=== PATIENT | female | born 1940 | race Caucasian/White ===

== ENCOUNTER 2016-12-14 19:10 | Emergency (ER) | payer MEDICARE, BC ==
[2016-12-14 20:07] VITALS: PULSE 86; RESP 18
[2016-12-14] MEDS ORDERED: KETOROLAC 60 MG/2 ML VIAL IM STA (22:20)
--- NOTE | 2016-12-14 22:24 | ED ---
Back Pain HPI - General Chief Complaint: Back Pain/Injury Stated Complaint: Back/Leg Pain Time Seen by Provider: 12/14/16 22:00 Source: patient, RN notes reviewed Limitations: no limitations - History of Present Illness Initial Comments: Patient is 76-year-old female since emergency room for evaluation of right- sided low back pain. Patient states she fell back in August. Patient states she came here and received a hip and lower back x-ray. Patient states x-rays did not show any findings and she was sent home and advised to follow-up with Dr[facility]. Patient states she went and saw Dr. Srinivasan and he reviewed the x-rays and did not find any fractures. Patient states she was prescribed ibuprofen. Patient states she has been taking ibuprofen. Patient states when she woke up she began having worsening right- sided low back pain that radiates into her right upper leg. Patient states that her right foot is feeling numb. Patient states pain is worse if she sits up, lays down or stands up. Patient denies recent falls since August. Patient denies recent heavy lifting. Patient denies any recent changes in physical activity. Patient states she's having constant pain that would not subside. Patient denies urinary or fecal incontinence. Patient denies saddle anesthesia. - Related Data Home Medications Medication Instructions Recorded Confirmed amLODIPine BESYLATE/BENAZEPRIL 1 cap PO DAILY 12/14/16 12/14/16 [Lotrel 5-20 mg Capsule] Previous Rx's Medication Instructions Recorded methylPREDNISolone Dose Pack 4 mg PO DIRECTED #21 package 12/14/16 [Medrol Dose Pack] Allergies Allergy/AdvReac Type Severity Reaction Status Date / Time No Known Allergies Allergy Verified 12/14/16 21:28 Review of Systems ROS Statement: Those systems with pertinent positive or pertinent negative responses have been documented in the HPI. ROS Other: All systems not noted in ROS Statement are negative. Past Medical History Past Medical History: Hypertension History of Any Multi-Drug Resistant Organisms: None Reported Past Surgical History: Hysterectomy Past Psychological History: No Psychological Hx Reported Smoking Status: Never smoker Past Alcohol Use History: None Reported Past Drug Use History: None Reported General Exam - General Exam Comments Initial Comments: Sitting in exam room, no acute distress. Limitations: no limitations General appearance: alert, in no apparent distress Head exam: Present: atraumatic, normocephalic, normal inspection Eye exam: Present: normal appearance ENT exam: Present: normal exam Neck exam: Present: normal inspection Respiratory exam: Present: normal lung sounds bilaterally. Absent: respiratory distress Cardiovascular Exam: Present: regular rate, normal rhythm, normal heart sounds Back exam: Present: normal inspection, paraspinal tenderness (right lumbosacral spine) Expanded Back exam: Sciatic Notch Tenderness: Right, Positive Straight Leg Raise: Right Neurological exam: Present: alert, oriented X3 Psychiatric exam: Present: normal affect, normal mood Skin exam: Present: warm, dry, intact, normal color. Absent: rash Course Vital Signs 12/14/16 12/14/16 20:02 22:28 Temperature 98.4 F 97.9 F Pulse Rate 86 86 Respiratory 18 18 Rate Blood Pressure 157/85 156/87 O2 Sat by Pulse 97 96 Oximetry Medical Decision Making - Medical Decision Making Patient is a 76-year-old female presents emergency room for evaluation of right- sided low back pain and lumbar radiculopathy in the right side. Patient was offered another x-ray and patient declined. Will send patient home on a Medrol Dosepak and advised her to follow-up with her primary care provider for possible MRI for further evaluation of symptoms. Patient states she understands everything that was discussed with her. Return parameters discussed. Case discussed with Dr. Cervantes. Disposition Clinical Impression: Low back pain, Lumbar radiculopathy, right Disposition: HOME SELF-CARE Condition: Good Instructions: Acute Low Back Pain (ED), Lumbar Radiculopathy (ED) Additional Instructions: Take medications as directed. Alternate ice and heat. Please follow up with primary care provider in 1-2 days for further evaluation. If any new symptom arises or symptoms worsen, return to ER as soon as possible. Prescriptions: methylPREDNISolone Dose Pack [Medrol Dose Pack] 4 mg PO DIRECTED #21 package Referrals: Bhanu Vicente MD [Primary Care Provider] - 1-2 days Time of Disposition: 22:38
[2016-12-14 22:29] VITALS: BP 156/87; TEMP 97.9
== END 2016-12-14 22:53 | disposition home or self-care (01) ==
LOC: EC 19:10
DX: M54.16 Radiculopathy, lumbar region (principal); I10 Essential (primary) hypertension; Z79.899 Other long term (current) drug therapy
CPT/HCPCS: 99283; 96372; J1885

== ENCOUNTER → 2016-12-16 | Outpatient (CLI) | payer MEDICARE, BC ==
--- NOTE | 2016-12-16 13:15 | XR ---
EXAMINATION TYPE: XR lumbosacral spine min 4V DATE OF EXAM: 12/16/2016 12:47 PM COMPARISON: 09/11/2016 HISTORY: 76-year-old female low back pain TECHNIQUE: 5 views FINDINGS: 5 lumbar type vertebral bodies. No pars interarticularis defect. Hypertrophic facet arthropathy mid t o lower lumbar spine. There is mild degenerative disc interspace narrowing throughout the lumbar spin e. Vertebral body heights are preserved and alignment is maintained. There has been no significant ch yenni from 09/11/2016. IMPRESSION: 1. Multilevel mild degenerative disc disease. Additional hypertrophic facet arthropathy mid to lower lumbar spine. 2. No vertebral compression collapse or malalignment. 3. No significant change from 09/11/2016.
== END ==
LOC: RADXRMAIN 12:28
PROVIDERS: ATTEND Internal Medicine
DX: M51.36 Other intervertebral disc degeneration, lumbar region (principal); M46.86 Other specified inflammatory spondylopathies, lumbar region
CPT/HCPCS: 72110

== ENCOUNTER 2016-12-23 09:41 | Observation (INO) | payer MEDICARE, BC ==
[2016-12-23] MEDS ORDERED: ONDANSETRON 4 MG/2 ML VIAL IVP STA (10:13)
[2016-12-23] MEDS ORDERED: HYDROmorphone 1 MG/ML 1 ML SYRINGE IVP STA (10:13)
[2016-12-23] MEDS ORDERED: SODIUM CHLORIDE 0.9% 1,000 ML IV STA (10:13)
[2016-12-23] MEDS ORDERED: PANTOPRAZOLE 40 MG/10 ML VIAL IVP STA (10:13)
--- NOTE | 2016-12-23 10:21 | ED ---
Abdominal Pain HPI - General Chief Complaint: Abdominal Pain Stated Complaint: rectal bleeding Time Seen by Provider: 12/23/16 10:02 Source: patient, RN notes reviewed Mode of arrival: ambulatory Limitations: no limitations - History of Present Illness Initial Comments: Patient 76-year-old female seen in the past medical history for diverticulitis, who presents emergency room today with chief complaint of increased lower abdominal pain over the last few days. Does admit to a bright red blood in toilet. Patient does admit that she's had these symptoms in the past with diverticulitis. Does admit to pain in lower abdomen. States comes and goes with cramping type ways. She admits to feeling nauseated. Denies any other complaints. Patient denies any recent fever, chills, shortness of breath, chest pain, back pain, numbness or tingling, dysuria or hematuria, constipation, headaches or visual changes, or any other complaints. - Related Data Home Medications Medication Instructions Recorded Confirmed amLODIPine BESYLATE/BENAZEPRIL 1 cap PO DAILY 12/14/16 12/23/16 [Lotrel 5-20 mg Capsule] Allergies Allergy/AdvReac Type Severity Reaction Status Date / Time codeine AdvReac Nausea & Verified 12/23/16 12:44 Vomiting morphine AdvReac Nausea & Verified 12/23/16 12:44 Vomiting Review of Systems ROS Statement: Those systems with pertinent positive or pertinent negative responses have been documented in the HPI. ROS Other: All systems not noted in ROS Statement are negative. Past Medical History Past Medical History: Hypertension History of Any Multi-Drug Resistant Organisms: None Reported Past Surgical History: Hysterectomy Past Psychological History: No Psychological Hx Reported Smoking Status: Never smoker Past Alcohol Use History: None Reported Past Drug Use History: None Reported General Exam - General Exam Comments Initial Comments: General: The patient is awake and alert, in no distress, and does not appear acutely ill. Eye: Pupils are equal, round and reactive to light, extra-ocular movements are intact. No nystagmus. There is normal conjunctiva bilaterally. No signs of icterus. Ears, nose, mouth and throat: There are moist mucous membranes and no oral lesions. Neck: The neck is supple, there is no tenderness or JVD. Cardiovascular: There is a regular rate and rhythm. No murmur, rub or gallop is appreciated. Respiratory: Lungs are clear to auscultation, respirations are non-labored, breath sounds are equal. No wheezes, stridor, rales, or rhonchi. Gastrointestinal: Soft, non-distended, non-tender abdomen without masses or organomegaly noted. There is no rebound or guarding present. No CVA tenderness. Bowel sounds are unremarkable. Musculoskeletal: Normal ROM, no tenderness. Strength 5/5. Sensation intact. Pulses equal bilaterally 2+. Neurological: A&O x 3. CN II-XII intact, There are no obvious motor or sensory deficits. Coordination appears grossly intact. Speech is normal. Skin: Skin is warm and dry and no rashes or lesions are noted. Psychiatric: Cooperative, appropriate mood & affect, normal judgment. : [employer] TO[employer] TECHNICIANCHANTELLE Junior present for exam. Normal rectal tone. Guaiac positive. Limitations: no limitations Course Vital Signs 12/23/16 12/23/16 12/23/16 09:55 10:58 12:07 Temperature 97.3 F L 98.0 F Pulse Rate 99 92 91 Respiratory 20 14 14 Rate Blood Pressure 149/93 158/88 133/75 O2 Sat by Pulse 98 95 97 Oximetry Medical Decision Making - Medical Decision Making Patient's CT reviewed shows no evidence of a diverticulitis. Patient did have bright red blood per rectum.. Does admit to bloody bowel movements over the last day. Patient will be admitted to the hospital further evaluation consult Dr. Jones. - Lab Data Result diagrams: 12/23/16 10:43 12/23/16 10:43 Lab Results 12/23/16 12/23/16 12/23/16 Range/Units 10:43 10:43 10:43 WBC 10.6 (3.8-10.6) k/uL RBC 5.09 (3.80-5.40) m/uL Hgb 15.0 (11.4-16.0) gm/dL Hct 44.1 (34.0-46.0) % MCV 86.6 (80.0-100.0) fL MCH 29.4 (25.0-35.0) pg MCHC 34.0 (31.0-37.0) g/dL RDW 13.0 (11.5-15.5) % Plt Count 348 (150-450) k/uL Neutrophils % 78 % Lymphocytes % 18 % Monocytes % 3 % Eosinophils % 0 % Basophils % 0 % Neutrophils # 8.3 H (1.3-7.7) k/uL Lymphocytes # 1.9 (1.0-4.8) k/uL Monocytes # 0.4 (0-1.0) k/uL Eosinophils # 0.0 (0-0.7) k/uL Basophils # 0.0 (0-0.2) k/uL PT (9.0-12.0) sec INR (<1.1) APTT (22.0-30.0) sec Sodium 134 L (137-145) mmol/L Potassium 4.5 (3.5-5.1) mmol/L Chloride 98 (98-107) mmol/L Carbon Dioxide 28 (22-30) mmol/L Anion Gap 8 mmol/L BUN 15 (7-17) mg/dL Creatinine 0.67 (0.52-1.04) mg/dL Est GFR (MDRD) Af Amer >60 (>60 ml/min/1.73 sqM) Est GFR (MDRD) Non-Af >60 (>60 ml/min/1.73 sqM) Glucose 135 H (74-99) mg/dL Plasma Lactic Acid Malcolm 1.1 (0.7-2.0) mmol/L Calcium 9.8 (8.4-10.2) mg/dL Total Bilirubin 0.8 (0.2-1.3) mg/dL AST 19 (14-36) U/L ALT 30 (9-52) U/L Alkaline Phosphatase 73 (38-126) U/L Total Protein 7.3 (6.3-8.2) g/dL Albumin 4.1 (3.5-5.0) g/dL Stool Occult Blood (Negative) 12/23/16 12/23/16 Range/Units 10:43 11:00 WBC (3.8-10.6) k/uL RBC (3.80-5.40) m/uL Hgb (11.4-16.0) gm/dL Hct (34.0-46.0) % MCV (80.0-100.0) fL MCH (25.0-35.0) pg MCHC (31.0-37.0) g/dL RDW (11.5-15.5) % Plt Count (150-450) k/uL Neutrophils % % Lymphocytes % % Monocytes % % Eosinophils % % Basophils % % Neutrophils # (1.3-7.7) k/uL Lymphocytes # (1.0-4.8) k/uL Monocytes # (0-1.0) k/uL Eosinophils # (0-0.7) k/uL Basophils # (0-0.2) k/uL PT 10.2 (9.0-12.0) sec INR 1.0 (<1.1) APTT 21.0 L (22.0-30.0) sec Sodium (137-145) mmol/L Potassium (3.5-5.1) mmol/L Chloride (98-107) mmol/L Carbon Dioxide (22-30) mmol/L Anion Gap mmol/L BUN (7-17) mg/dL Creatinine (0.52-1.04) mg/dL Est GFR (MDRD) Af Amer (>60 ml/min/1.73 sqM) Est GFR (MDRD) Non-Af (>60 ml/min/1.73 sqM) Glucose (74-99) mg/dL Plasma Lactic Acid Malcolm (0.7-2.0) mmol/L Calcium (8.4-10.2) mg/dL Total Bilirubin (0.2-1.3) mg/dL AST (14-36) U/L ALT (9-52) U/L Alkaline Phosphatase (38-126) U/L Total Protein (6.3-8.2) g/dL Albumin (3.5-5.0) g/dL Stool Occult Blood Positive H (Negative) Disposition Clinical Impression: GI bleed Disposition: ADMITTED IP TO THIS [facility] Condition: Good Time of Disposition: 13:37
[2016-12-23 11:04] LABS: Basophils % (A) 0 %; CH 30.4; CHCM 35.2; Eosinophils % (A) 0 %; HCT 44.1 % (34.0-46.0); HDW 2.53; Luc # (Auto) 0.06; Luc % (Auto) 1; Lymphocytes # (A) 1.9 k/uL (1.0-4.8); Lymphocytes % (A) 18 %; MCH 29.4 pg (25.0-35.0); MCV 86.6 fL (80.0-100.0); Mean Platelet Volume 5.8; Monocytes # (A) 0.4 k/uL (0-1.0); Monocytes % (A) 3 %; Neutrophils # (A) 8.3 k/uL (1.3-7.7); Neutrophils % (A) 78 %; RBC 5.09 m/uL (3.80-5.40); WBC 10.6 k/uL (3.8-10.6); WBC (Perox) 10.54
[2016-12-23 11:16] LABS: ALT 30 U/L (9-52); AST 19 U/L (14-36); Alkaline Phosphatase 73 U/L (38-126); Anion Gap 8 mmol/L; Blood Urea Nitrogen 15 mg/dL (7-17); Calcium 9.8 mg/dL (8.4-10.2); Carbon Dioxide 28 mmol/L (22-30); Chloride 98 mmol/L (98-107); Glucose 135 mg/dL (74-99); Non-African American GFR(MDRD) >60 (>60 ml/min/1.73 sqM); Potassium 4.5 mmol/L (3.5-5.1); Sodium 134 mmol/L (137-145); Total Bilirubin 0.8 mg/dL (0.2-1.3); Total Protein 7.3 g/dL (6.3-8.2)
[2016-12-23 11:17] LABS: Prothrombin Time 10.2 sec (9.0-12.0)
[2016-12-23] MEDS ORDERED: RX INFO: IV CONTRAST WAS GIVEN 1 EACH MISC MISCELLANE PRN (11:51)
--- NOTE | 2016-12-23 12:39 | XR ---
EXAMINATION TYPE: XR KUB DATE OF EXAM: 12/23/2016 11:21 AM COMPARISON: NONE HISTORY: Pain TECHNIQUE: Single supine KUB image of the abdomen is obtained FINDINGS: Small bowel demonstrates no evidence for dilatation or air fluid levels. Gas and fecal material is seen in non-distended colon. No convincing evidence for pneumoperitoneum. Suspect bilateral nephrolithiasis. The lung bases are clear. The osseous structures are intact. IMPRESSION: 1. Overall nonobstructive bowel gas pattern. 2. Suspect bilateral nephrolithiasis.
--- NOTE | 2016-12-23 13:05 | CT ---
EXAMINATION TYPE: CT abdomen pelvis w con DATE OF EXAM: 12/23/2016 12:29 PM COMPARISON: 12/11/2009 INDICATION: Patient complains of pelvic pain and bloody stools. DLP: 428.2 mGycm, Automated exposure control for dose reduction was used. CONTRAST: 100 mL of Omnipaque 300. Study performed without Oral Contrast TECHNIQUE: Axial images were obtained from above the diaphragm to the pubic rami in the axial plane a t 5 mm thick sections. Reconstructed images are reviewed on the computer in the coronal plane. FINDINGS: Limited CT sections are obtained the lung bases. Minimal compressive atelectasis is within the depen dent portions of the lung bases.. CT ABDOMEN: Liver: Multiple hypodensities are scattered throughout the liver. These low density rounded structure s can be compatible with hepatic cysts. These appear to been present previously. Spleen: Normal Pancreas: Normal Adrenal glands: The adrenal glands are normal. Gallbladder: Normal Kidneys: No masses are evident. No hydronephrosis is present. No cysts are present. Delayed images were obtained through the kidneys, which remain unremarkable. Aorta: Vascular calcification is within the aorta. Inferior vena cava: Normal. CT PELVIS: Loops of bowel within the abdomen and pelvis are normal. There are loops of bowel which are incom pletely distended or lack oral contrast limiting their evaluation. Scattered diverticuli within the s igmoid colon. No acute diverticulitis is evident. Appendix: Not identified Urinary bladder: Unremarkable as visualized. Genitourinary structures: Uterus is not identified. Adnexal regions appear clear. Osseous structures: No suspicious lytic or sclerotic lesions. IMPRESSIONS: 1. No suspicious acute changes. 2. Hepatic cysts. 3. Diverticulosis without radiographic changes associated with acute diverticulitis.
[2016-12-23] MEDS ORDERED: LEVOFLOXACIN 500MG-D5W PMX 500 MG in DEXTROSE/WATER 1 100ML.BAG IVPB STA (13:55)
[2016-12-23] MEDS ORDERED: metroNIDAZOLE-NS PMX 500 MG in SALINE 1 100ML.BAG IVPB STA (13:55)
[2016-12-23] MEDS ORDERED: ONDANSETRON 4 MG/2 ML VIAL IVP PRN (13:57)
[2016-12-23] MEDS ORDERED: NALOXONE 0.4 MG/ML 1 ML VIAL IV PRN (13:57)
[2016-12-23] MEDS ORDERED: HYDROmorphone 1 MG/ML 1 ML SYRINGE IV PRN (13:57)
[2016-12-23] MEDS ORDERED: ACETAMINOPHEN TAB 325 MG TAB PO PRN (13:57)
[2016-12-23] MEDS ORDERED: LEVOFLOXACIN 500MG-D5W PMX 500 MG in DEXTROSE/WATER 1 100ML.BAG IVPB SCH (14:00)
[2016-12-23] MEDS: SODIUM CHLORIDE 0.9% 1,000 ML IV ONE (14:23)
[2016-12-23 14:26] LABS: Appearance,Urine Clear (Clear); Bilirubin,Urine Negative (Negative); Glucose,Urine (UA) Negative (Negative); Ketones,Urine 1+ (Negative); Leukocyte Esterase,Urine Negative (Negative); Nitrite,Urine Negative (Negative); Protein,Urine Negative (Negative); UA Billing (MACRO vs. MICRO) CHEM; Urobilinogen,Urine <2.0 mg/dL (<2.0)
--- NOTE | 2016-12-23 15:58 | P.GSCN ---
History of Present Illness Consult date: 12/23/16 Reason for Consult: GI bleed History of present illness: This a 76-year-old female who was admitted through the emergency room with complaints of rectal bleeding. Patient states she had a large bowel movement at home. Patient states that she previously has had the same problem approximately 7 years ago. At that time she underwent colonoscopies found have some polyps and diverticulosis. The patient denies any significant abdominal pain. Review of Systems - Constitutional Reports as per HPI Past Medical History Past Medical History: Hypertension History of Any Multi-Drug Resistant Organisms: None Reported Past Surgical History: Hysterectomy Past Psychological History: No Psychological Hx Reported Smoking Status: Never smoker Past Alcohol Use History: None Reported Past Drug Use History: None Reported Medications and Allergies Home Medications Medication Instructions Recorded Confirmed Type amLODIPine BESYLATE/BENAZEPRIL 1 cap PO DAILY 12/14/16 12/23/16 History [Lotrel 5-20 mg Capsule] Allergies Allergy/AdvReac Type Severity Reaction Status Date / Time codeine AdvReac Nausea & Verified 12/23/16 15:25 Vomiting morphine AdvReac Nausea & Verified 12/23/16 15:25 Vomiting Surgical - Exam Vital Signs Temp Pulse Resp BP Pulse Ox 97.3 F L 99 20 149/93 98 12/23/16 09:55 12/23/16 09:55 12/23/16 09:55 12/23/16 09:55 12/23/16 09:55 - General well developed, no distress - Eyes PERRL - ENT normal pinna - Respiratory normal expansion - Cardiovascular Rhythm: regular - Abdomen Abdomen: soft, non tender Results - Labs 12/23/16 10:43 12/23/16 10:43 Abnormal Lab Results - Last 24 Hours (Table) 12/23/16 Range/Units 14:06 Ur Specific [place] 1.050 H (1.001-1.035) Urine Ketones 1+ H (Negative) Assessment and Plan Plan: GI bleed. Patient will be observed. If she has further bleeding we will perform colonoscopy.
[2016-12-24] MEDS: metroNIDAZOLE-NS PMX 500 MG in SALINE 1 100ML.BAG IVPB SCH ×4 (00:55→23:58)
[2016-12-24 06:40] LABS: Basophils % (A) 0 %; CH 30.5; CHCM 34.7; Eosinophils % (A) 0 %; HCT 39.4 % (34.0-46.0); HDW 2.48; HGB 13.1 gm/dL (11.4-16.0); Luc # (Auto) 0.13; Luc % (Auto) 2; Lymphocytes # (A) 2.1 k/uL (1.0-4.8); Lymphocytes % (A) 29 %; MCH 29.3 pg (25.0-35.0); MCHC 33.2 g/dL (31.0-37.0); MCV 88.1 fL (80.0-100.0); Mean Platelet Volume 5.8; Monocytes # (A) 0.5 k/uL (0-1.0); Monocytes % (A) 7 %; Neutrophils # (A) 4.4 k/uL (1.3-7.7); Neutrophils % (A) 62 %; RBC 4.47 m/uL (3.80-5.40); RDW 13.1 % (11.5-15.5); WBC 7.2 k/uL (3.8-10.6); WBC (Perox) 7.51
[2016-12-24] MEDS: SODIUM CHLORIDE 0.9% 1,000 ML IV ONE (06:50)
[2016-12-24 06:53] LABS: ALT 32 U/L (9-52); AST 14 U/L (14-36); Alkaline Phosphatase 53 U/L (38-126); Anion Gap 6 mmol/L; Blood Urea Nitrogen 7 mg/dL (7-17); Calcium 9.1 mg/dL (8.4-10.2); Carbon Dioxide 26 mmol/L (22-30); Chloride 103 mmol/L (98-107); Glucose 103 mg/dL (74-99); Non-African American GFR(MDRD) >60 (>60 ml/min/1.73 sqM); Potassium 4.2 mmol/L (3.5-5.1); Sodium 135 mmol/L (137-145); Total Bilirubin 0.9 mg/dL (0.2-1.3)
--- NOTE | 2016-12-24 10:57 | P.PN ---
Progress Note - Text The patient feels well. She's had no further GI bleed. Her hemoglobin has been stable in the 12 range. On exam her vital signs are stable. Her abdomen soft. Patient wishes to go home. She will be discharged home by the medical service. She'll follow-up next week for outpatient colonoscopy.
[2016-12-24] MEDS: amLODIPine 5 MG TAB PO SCH (11:50)
[2016-12-24] MEDS: LISINOPRIL 20 MG TAB PO SCH (11:50)
--- NOTE | 2016-12-24 13:24 | P.HPIM ---
History of Present Illness H&P Date: 12/24/16 Chief Complaint: Rectal bleeding This is a 76-year-old female with past medical history noted below who presented to the hospital with rectal bleed. She said that she noted bright red blood with her stool on and off for the past 2 weeks. Yesterday she said that the amount of blood was more than before. She described the blood as bright red and approximately 2 tablespoonful of blood. She had colonoscopy in the past lasting 2009. She had episode of acute diverticulitis in the past as well. She denies any abdominal pain. She reported good appetite. She was evaluated in the emergency room and computed tomography scan of the abdomen showed diffuse diverticulosis with no acute abdominal findings. Hemoglobin was relatively stable. Hemoccult was positive. Review of Systems Review of system: 14 points review of systems were obtained and were negative except to what were mentioned in the HPI. Past Medical History Past Medical History: Hypertension Additional Past Medical History / Comment(s): 2 falls in past 6 weeks, back pain, sciatica, endometreosis(had hysterectomy), diverticulitis/colits, benign poly removed, glaucoma(not on drops), osteoporosis. History of Any Multi-Drug Resistant Organisms: None Reported Past Surgical History: Appendectomy, Hysterectomy Additional Past Surgical History / Comment(s): colonoscopy/polypectomy Past Anesthesia/Blood Transfusion Reactions: No Reported Reaction Past Psychological History: No Psychological Hx Reported Additional Psychological History / Comment(s): pt lives alone in own home- has 4 steps into home- ranch style home. is independant, no assistive devices/no hopital equipment. no outside services. 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 Smoking Status: Never smoker Past Alcohol Use History: None Reported Past Drug Use History: None Reported - Past Family History Father Family Medical History: Cancer, Myocardial Infarction ([place]) Additional Family Medical History / Comment(s): leukemia Mother Family Medical History: Cancer, CVA/TIA, Hypertension, Myocardial Infarction ([place] ), Thyroid Disorder Additional Family Medical History / Comment(s): colon cancer, lived to be Medications and Allergies Home Medications Medication Instructions Recorded Confirmed Type amLODIPine BESYLATE/BENAZEPRIL 1 cap PO DAILY 12/14/16 12/23/16 History [Lotrel 5-20 mg Capsule] Allergies Allergy/AdvReac Type Severity Reaction Status Date / Time codeine AdvReac Nausea & Verified 12/23/16 15:25 Vomiting morphine AdvReac Nausea & Verified 12/23/16 15:25 Vomiting Physical Exam Vitals: Vital Signs Temp Pulse Pulse Resp BP BP Pulse Ox 12/24/16 08:45 97.1 F L 78 19 127/70 95 12/24/16 00:55 98.5 F 82 18 131/79 94 L 12/23/16 20:55 97.7 F 86 16 146/79 96 12/23/16 16:15 96.9 F L 88 14 136/73 97 12/23/16 14:24 97.9 F 95 14 160/86 96 Intake and Output 12/23/16 12/24/16 12/24/16 22:59 06:59 14:59 Other: # Voids 1 1 Weight 59.6 kg General: The patient is awake and alert, in no distress, and does not appear acutely ill. Eye: extra-ocular movements are intact; there is normal conjunctiva bilaterally. . Neck: The neck is supple, there is no tenderness or JVD. Cardiovascular: Normal S1-S2, no S3-S4, no murmurs. Respiratory: Lungs clear to auscultation bilaterally with no wheezes rhonchi or rales. Gastrointestinal: Abdomen is soft, nontender, nondistended, with no organomegaly. . Musculoskeletal: Normal ROM, no tenderness, There is no pedal edema. Neurological: There are no obvious motor or sensory deficits. Speech is normal. Skin: Skin is warm and dry and no rashes or lesions are noted. Results CBC & Chem 7: 12/24/16 06:28 12/24/16 06:28 Labs: Abnormal Lab Results - Last 24 Hours (Table) 12/23/16 12/24/16 Range/Units 14:06 06:28 Sodium 135 L (137-145) mmol/L Glucose 103 H (74-99) mg/dL Total Protein 6.0 L (6.3-8.2) g/dL Albumin 3.2 L (3.5-5.0) g/dL Ur Specific [place] 1.050 H (1.001-1.035) Urine Ketones 1+ H (Negative) Assessment and Plan Plan: 1. Lower GI bleed 2. Essential hypertension: Blood pressure well-controlled 3. DVT prophylaxis with SCD 76-year-old female presented to the hospital with blood per rectum. Hemoglobin dropped approximately 2 g since admission. Partially dilutional. We will repeat CBC in the morning. Her GI bleed is mostly diverticular in nature. Awaiting her to have another bowel movement. If persistent bleeding may consider colonoscopy on Monday. We will continue to monitor otherwise. If no evidence of bleeding and hemoglobin stable May be discharged home tomorrow.
[2016-12-24] MEDS ORDERED: LEVOFLOXACIN 500MG-D5W PMX 500 MG in DEXTROSE/WATER 1 100ML.BAG IVPB SCH (14:00)
[2016-12-24 15:53] VITALS: RESP 18
[2016-12-25] MEDS: SODIUM CHLORIDE 0.9% 1,000 ML IV ONE (06:01)
[2016-12-25 06:06] VITALS: BP 138/78; PULSE 65; TEMP 98.1
[2016-12-25 06:53] LABS: Basophils % (A) 0 %; CH 30.2; CHCM 34.1; Eosinophils % (A) 0 %; HCT 38.8 % (34.0-46.0); HDW 2.51; HGB 12.8 gm/dL (11.4-16.0); Luc # (Auto) 0.17; Luc % (Auto) 3; Lymphocytes # (A) 2.1 k/uL (1.0-4.8); Lymphocytes % (A) 37 %; MCH 29.4 pg (25.0-35.0); MCV 89.1 fL (80.0-100.0); Mean Platelet Volume 5.7; Monocytes # (A) 0.4 k/uL (0-1.0); Monocytes % (A) 7 %; Neutrophils % (A) 53 %; RBC 4.35 m/uL (3.80-5.40); WBC 5.7 k/uL (3.8-10.6); WBC (Perox) 5.71
[2016-12-25 07:04] LABS: Anion Gap 6 mmol/L; Blood Urea Nitrogen 6 mg/dL (7-17); Calcium 9.2 mg/dL (8.4-10.2); Carbon Dioxide 27 mmol/L (22-30); Chloride 104 mmol/L (98-107); Glucose 95 mg/dL (74-99); Non-African American GFR(MDRD) >60 (>60 ml/min/1.73 sqM); Potassium 4.2 mmol/L (3.5-5.1); Sodium 137 mmol/L (137-145)
[2016-12-25] MEDS: metroNIDAZOLE-NS PMX 500 MG in SALINE 1 100ML.BAG IVPB SCH (07:57)
[2016-12-25] MEDS: amLODIPine 5 MG TAB PO SCH (07:58)
[2016-12-25] MEDS: LISINOPRIL 20 MG TAB PO SCH (07:58)
--- NOTE | 2016-12-25 09:58 | P.PN ---
Progress Note - Text The patient denies any GI bleed. She feels well and wished to go home. On exam her vital signs are stable. Her abdomen soft. The patient will most likely be discharged home today we will schedule outpatient colonoscopy.
--- NOTE | 2016-12-25 13:08 | P.DS ---
Providers Date of admission: 12/23/16 13:57 Expected date of discharge: 12/25/16 Attending physician: Dung Salter Primary care physician: Bhanu Vicente [facility] Course: 1. Lower GI bleed most likely diverticular bleed 2. Essential hypertension: Blood pressure well-controlled 76-year-old female presented to the hospital with blood per rectum. Patient's hemoglobin remained within normal/acceptable range. She was monitored for 24- 48 hours. She was seen and evaluated by general surgery. Plan for colonoscopy as an outpatient. No evidence of ongoing bleed. Patient advised to return to the emergency room where she noticed more bright red blood per rectum. She will be discharged home in a stable condition. Patient Condition at Discharge: Good Plan - Discharge Summary Discharge Medication List amLODIPine BESYLATE/BENAZEPRIL [Lotrel 5-20 mg Capsule] 1 cap PO DAILY 12/14/16 [History] Follow up Appointment(s)/Referral(s): Bhanu Vicente MD [Primary Care Provider] - 1-2 days Lucian Lund MD [STAFF PHYSICIAN] - 1 Week Activity/Diet/Wound Care/Special Instructions: CALL MONDAY TO RECHECK WITH DR LUND ON MONDAY Discharge Disposition: HOME SELF-CARE
== END 2016-12-25 13:45 | disposition home or self-care (01) ==
LOC: EC 09:41 → 6PED 13:57
PROVIDERS: ADMIT Internal Medicine; ATTEND Internal Medicine
DX: K57.91 Diverticulosis of intestine, part unspecified, without perforation or abscess with bleeding (principal); I10 Essential (primary) hypertension; R11.0 Nausea; Z79.899 Other long term (current) drug therapy; Z88.5 Allergy status to narcotic agent; Z86.010 Personal history of colon polyps; Z90.710 Acquired absence of both cervix and uterus; Z91.81 History of falling
CPT/HCPCS: 36415; 80053 ×2; 80048; 83605; 85025 ×3; 85610; 85730; 82272; 81003; 74000; 74177; 99285; 96375; 96361; G0378 ×3; J2405; J1956 ×2; J1170; Q9967; C9113; 96365; 96366; 96367; 96376

== ENCOUNTER 2017-01-02 09:41 | Day surgery (SDC) | payer MEDICARE, BC ==
[2016-12-30 15:40] VITALS: BMI 23.8
[2017-01-02 10:33] VITALS: TEMP 97.9
[2017-01-02] MEDS ORDERED: LACTATED RINGERS 1,000 ML IV ONE (10:43)
[2017-01-02] MEDS ORDERED: LIDOCAINE 1% 20 ML VIAL (10MG/ML) FOR IV START IV ONE (10:44)
[2017-01-02] MEDS ORDERED: PROPOFOL 10 MG/ML 20 ML VIAL IV ONE (10:46)
--- NOTE | 2017-01-02 11:07 | P.GSHP ---
History of Present Illness H&P Date: 01/02/17 Chief Complaint: GI bleed This is a 76-year-old female with history of diverticulosis. Patient presents today for colonoscopy. She had a recent hospital admission for GI bleed. - Constitutional Constitutional: Reports as per HPI Past Medical History Past Medical History: Eye Disorder, GI Bleed, Hypertension Additional Past Medical History / Comment(s): 2 falls in past 6 weeks, back pain, sciatica, endometreosis(had hysterectomy), diverticulitis/colits, benign polyp removed, glaucoma(not on drops), osteoporosis. Current problems with diverticulitits and blood in stool. History of Any Multi-Drug Resistant Organisms: None Reported Past Surgical History: Appendectomy, Hysterectomy Additional Past Surgical History / Comment(s): colonoscopy/polypectomy Past Anesthesia/Blood Transfusion Reactions: No Reported Reaction Past Psychological History: No Psychological Hx Reported Additional Psychological History / Comment(s): pt lives alone in own home- has 4 steps into home- ranch style home. is independant, no assistive devices/no hopital equipment. no outside services. 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 Smoking Status: Never smoker Past Alcohol Use History: None Reported Past Drug Use History: None Reported - Past Family History Father Family Medical History: Cancer, Myocardial Infarction ([place]) Additional Family Medical History / Comment(s): leukemia Mother Family Medical History: Cancer, CVA/TIA, Hypertension, Myocardial Infarction (CT ), Thyroid Disorder Additional Family Medical History / Comment(s): colon cancer, lived to be 99 Sister(s) Family Medical History: Cancer Medications and Allergies Home Medications Medication Instructions Recorded Confirmed Type amLODIPine BESYLATE/BENAZEPRIL 1 cap PO DAILY 12/14/16 01/02/17 History [Lotrel 5-20 mg Capsule] Allergies Allergy/AdvReac Type Severity Reaction Status Date / Time codeine AdvReac Nausea & Verified 12/30/16 15:29 Vomiting Surgical - Exam Vital Signs Temp Pulse Resp BP Pulse Ox 97.9 F 79 18 128/82 96 01/02/17 10:32 01/02/17 10:32 01/02/17 10:32 01/02/17 10:32 01/02/17 10:32 - General well developed, no distress - Eyes PERRL - ENT normal pinna - Neck no masses - Respiratory normal expansion - Cardiovascular Rhythm: regular - Abdomen Abdomen: soft, non tender Assessment and Plan Plan: GI bleed. We'll perform colonoscopy.
--- NOTE | 2017-01-02 11:18 | P.OP ---
Date of Procedure: 01/02/17 Preoperative Diagnosis: GI bleed Postoperative Diagnosis: Severe diverticulosis of sigmoid colon Procedure(s) Performed: Colonoscopy Anesthesia: MAC Surgeon: Lucian Lund Pathology: none sent Condition: stable Disposition: PACU Description of Procedure: The patient's placed on the endoscopy table in the lateral position. She received IV sedation. Digital rectal exam was performed which revealed no abnormalities. The flexible colonoscope was then placed patient anus and passed throughout the entire colon. The ileocecal valve was visualized. The cecum, ascending and transverse colon appeared normal. In the descending colon there a few scattered diverticula. In the sigmoid colon there is extensive diverticular changes. There appeared to be some scarring of the sigmoid colon. There is no active bleeding seen the scope was brought back the rectum this appeared normal. Scope was withdrawn for patient.
[2017-01-02 11:22] VITALS: RESP 16
[2017-01-02 12:03] VITALS: BP 124/82; PULSE 74
== END 2017-01-02 12:06 | disposition home or self-care (01) ==
LOC: ORWHC2ENDO 09:41
PROVIDERS: ATTEND Surgery
DX: K57.30 Diverticulosis of large intestine without perforation or abscess without bleeding (principal); I10 Essential (primary) hypertension; Z79.899 Other long term (current) drug therapy; Z88.5 Allergy status to narcotic agent
CPT/HCPCS: 45378; J2704

== ENCOUNTER → 2017-12-22 | Outpatient (CLI) | payer MEDICARE, BC ==
--- NOTE | 2017-12-25 10:43 | MM ---
Reason for exam: screening (asymptomatic). Last mammogram was performed 2 years ago. History: Patient is postmenopausal. Physical Findings: A clinical breast exam by your physician is recommended on an annual basis and results should be correlated with mammographic findings. MG 3D Screening Mammo W/Cad Bilateral CC and MLO view(s) were taken. Prior study comparison: December 31, 2015, bilateral MG screening mammo w CAD. December 04, 2014, right breast MG work up mamm w CAD RT. There are scattered fibroglandular densities. Finding: There are typically benign vascular calcifications in both breasts. There is no discrete abnormality. ASSESSMENT: Benign, BI-RAD 2 RECOMMENDATION: Routine screening mammogram of both breasts in 1 year.
== END | disposition home or self-care (01) ==
LOC: RADMAMWWP 12:19
PROVIDERS: ATTEND Internal Medicine
DX: Z12.31 Encounter for screening mammogram for malignant neoplasm of breast (principal)
CPT/HCPCS: 77063; 77067

== ENCOUNTER 2018-12-07 09:52 | Emergency (ER) | payer MEDICARE, BC ==
[2018-12-07 09:56] VITALS: BP 172/100; PULSE 73; RESP 20; TEMP 97.5
--- NOTE | 2018-12-07 10:15 | ED ---
General Adult HPI - General Chief complaint: Extremity Injury, Upper Stated complaint: rt hand injury Time Seen by Provider: 12/07/18 10:05 Source: patient, RN notes reviewed Mode of arrival: ambulatory Limitations: no limitations - History of Present Illness Initial comments: 78-year-old female presents to the emergency department for a chief complaint of right wrist swelling times x 1 day. Patient states this started yesterday. She states 2 days ago she was chipping ice of her car and injured her wrist at that time. Patient denies falls. Patient denies fevers or chills. Patient does admit it hurts when moving the wrist. Patient states the redness and increased warmth is only on the dorsal aspect of the right wrist .Patient has no other complaints at this time including shortness of breath, chest pain, abdominal pain, nausea or vomiting, headache, or visual changes. - Related Data Home Medications Medication Instructions Recorded Confirmed amLODIPine BESYLATE/BENAZEPRIL 1 cap PO DAILY 12/14/16 12/07/18 [Lotrel 5-20 mg Capsule] Acetaminophen Tab [Tylenol Tab] 500 mg PO Q6HR PRN 12/07/18 12/07/18 Carvedilol [Coreg] 3.125 mg PO BID 12/07/18 12/07/18 Latanoprost [Xalatan 0.005%] 1 drop BOTH EYES HS 12/07/18 12/07/18 Previous Rx's Medication Instructions Recorded Cephalexin [Keflex] 500 mg PO Q6HR 10 Days cap 12/07/18 Allergies Allergy/AdvReac Type Severity Reaction Status Date / Time codeine AdvReac Nausea & Verified 12/07/18 10:08 Vomiting Review of Systems ROS Statement: Those systems with pertinent positive or pertinent negative responses have been documented in the HPI. ROS Other: All systems not noted in ROS Statement are negative. Past Medical History Past Medical History: Eye Disorder, GI Bleed, Hypertension Additional Past Medical History / Comment(s): 2 falls in past 6 weeks, back pain, sciatica, endometreosis(had hysterectomy), diverticulitis/colits, benign polyp removed, glaucoma(not on drops), osteoporosis. Current problems with diverticulitits and blood in stool. History of Any Multi-Drug Resistant Organisms: None Reported Past Surgical History: Appendectomy, Hysterectomy Additional Past Surgical History / Comment(s): colonoscopy/polypectomy Past Anesthesia/Blood Transfusion Reactions: No Reported Reaction Past Psychological History: No Psychological Hx Reported Smoking Status: Never smoker Past Alcohol Use History: None Reported Past Drug Use History: None Reported - Past Family History Father Family Medical History: Cancer, Myocardial Infarction ([place]) Additional Family Medical History / Comment(s): leukemia Mother Family Medical History: Cancer, CVA/TIA, Hypertension, Myocardial Infarction ([place] ), Thyroid Disorder Additional Family Medical History / Comment(s): colon cancer, lived to be 99 Sister(s) Family Medical History: Cancer General Exam Limitations: no limitations General appearance: alert, in no apparent distress Head exam: Present: atraumatic, normocephalic, normal inspection Eye exam: Present: normal appearance, PERRL, EOMI. Absent: scleral icterus, conjunctival injection, periorbital swelling ENT exam: Present: normal exam, mucous membranes moist Neck exam: Present: normal inspection, full ROM. Absent: tenderness, meningismus, lymphadenopathy Respiratory exam: Present: normal lung sounds bilaterally. Absent: respiratory distress, wheezes, rales, rhonchi, stridor Cardiovascular Exam: Present: regular rate, normal rhythm, normal heart sounds. Absent: systolic murmur, diastolic murmur, rubs, gallop, clicks Extremities exam: Present: tenderness (Tenderness noted to the right wrist on the dorsal aspect. Somewhat generalized. No significant tenderness noted of the palmar right wrist.), normal capillary refill (Capillary refill less than 2 seconds and radial pulse 2+.), joint swelling (Patient does have some edema with erythema noted to the dorsal right wrist.), other (Dictation intact in right upper extremity. Able to move all digits.). Absent: full ROM (Patient has about 20 flexion and extension of the right wrist.) Neurological exam: Present: alert, oriented X3, CN II-XII intact Psychiatric exam: Present: normal affect, normal mood Course Vital Signs 12/07/18 09:54 Temperature 97.5 F L Pulse Rate 73 Respiratory 20 Rate Blood Pressure 172/100 O2 Sat by Pulse 98 Oximetry Medical Decision Making - Medical Decision Making 78-year-old female presents to the emergency department for a chief complaint of right wrist pain. Patient was chipping ice the other day and this began hurting shortly afterwards. On exam patient does have erythema and edema noted to the dorsal right wrist with limited range of motion to 20. No fevers or chills. Neurovascular intact. Wrist x-ray shows small calcifications that appear well corticated and are not felt likely to be acute. Given erythema patient will be also treated with Keflex for potential cellulitis. I did Titus wrap patient by educated her to monitor the erythema on her wrist to make sure it is not worsening. Motrin and Tylenol for pain. Patient will follow up with orthopedics or return here has worsening symptoms. She will monitor for spreading redness or fever. Disposition Clinical Impression: Wrist pain Disposition: HOME SELF-CARE Condition: Good Instructions (If sedation given, give patient instructions): Wrist Injury (ED) , Cellulitis (ED) Additional Instructions: Please take antibiotic as directed. Take Motrin or Tylenol for pain. Please rest ice and elevate the right wrist. Evaluate for any spreading redness and return if this occurs. Follow-up with orthopedics in one to 2 days. Follow-up with primary care as well. Prescriptions: Cephalexin [Keflex] 500 mg PO Q6HR 10 Days cap Is patient prescribed a controlled substance at d/c from ED?: No Referrals: Bhanu Vicente MD [Primary Care Provider] - 1-2 days Geoff Belle DO [Doctor of Osteopathic Medicine] - 1-2 days Time of Disposition: 11:45
--- NOTE | 2018-12-07 10:43 | XR ---
Right hand and right wrist HISTORY: Trauma and pain 4 views of the right wrist and 3 views of the right hand are submitted. Soft tissue swelling is noted. There are small calcifications noted at the level of the lunotriquetra l ligament appear well-corticated and may be chronic. Some mild arthropathy changes are present. No e vident dislocation. IMPRESSION: Small calcifications appear well-corticated and are not felt likely to be acute. Mild ost eoarthritis.
[2018-12-07] MEDS ORDERED: CEPHALEXIN 500MG STARTER PACK 4 CAP BTL PO STA (11:44)
[2018-12-07] MEDS ORDERED: IBUPROFEN 600 MG STARTER PACK 4 TAB BTL PO STA (11:44)
== END 2018-12-07 12:10 | disposition home or self-care (01) ==
LOC: EC 09:52
DX: M25.531 Pain in right wrist (principal); I10 Essential (primary) hypertension; H40.9 Unspecified glaucoma; Z79.899 Other long term (current) drug therapy; Z88.5 Allergy status to narcotic agent
CPT/HCPCS: 99283

== ENCOUNTER → 2019-01-21 | Outpatient (CLI) | payer MEDICARE, BC ==
--- NOTE | 2019-01-22 08:53 | MM ---
Reason for exam: screening (asymptomatic). Last mammogram was performed 1 year and 1 month ago. History: Patient is postmenopausal. Physical Findings: A clinical breast exam by your physician is recommended on an annual basis and results should be correlated with mammographic findings. MG 3D Screening Mammo W/Cad Bilateral CC and MLO view(s) were taken. Prior study comparison: December 22, 2017, bilateral MG 3d screening mammo w/cad. December 31, 2015, bilateral MG screening mammo w CAD. There are scattered fibroglandular densities. Benign appearing bilateral calcifications. No significant changes when compared with prior studies. ASSESSMENT: Benign, BI-RAD 2 RECOMMENDATION: Routine screening mammogram of the right breast in 1 year.
== END | disposition home or self-care (01) ==
LOC: RADMAMWWP 12:11
PROVIDERS: ATTEND Internal Medicine
DX: Z12.31 Encounter for screening mammogram for malignant neoplasm of breast (principal)
CPT/HCPCS: 77063; 77067

== ENCOUNTER 2019-08-02 03:33 | Emergency (ER) | payer MEDICARE, BC ==
[2019-08-02 03:46] VITALS: BP 135/76; PULSE 82; RESP 20; TEMP 97.8
--- NOTE | 2019-08-02 04:03 | ED ---
Abdominal Pain HPI - General Chief Complaint: Abdominal Pain Stated Complaint: Rt Flank Pain Fever Time Seen by Provider: 08/02/19 04:02 Source: patient, family Mode of arrival: ambulatory Limitations: no limitations - History of Present Illness Initial Comments: This patient is 79-year-old woman who presents to be evaluated for upper abdominal pain. Patient states that it had come on probably a little after midnight. She indicates the bilateral upper quadrants and states that the pain seemed to radiate to her back. The patient is not able to characterize the pain well. Patient states the pain did become severe. She had called her daughter who did come to check on her and found that her mother was lying on the floor complaining of pain. She also was having multiple episodes of vomiting. Currently the symptoms have resolved. There was no change in bowel movements, the last of which was yesterday and was normal. No change in urination. No chest pain or dyspnea. MD Complaint: abdominal pain Onset/Timin -: hour(s) Location: LUQ, RUQ Radiation: back Severity: severe Quality: aching Consistency: now resolved Improves With: nothing Worsens With: nothing Associated Symptoms: nausea, vomiting, chills - Related Data Home Medications Medication Instructions Recorded Confirmed Latanoprost [Xalatan 0.005%] 1 drop BOTH EYES HS 12/07/18 08/02/19 ALPRAZolam [Xanax] 0.25 mg PO BID PRN 08/02/19 08/02/19 Carvedilol [Coreg] 12.5 mg PO BID 08/02/19 08/02/19 Ergocalciferol [Vitamin D2] 50,000 unit PO SA 08/02/19 08/02/19 Escitalopram [Lexapro] 10 mg PO DAILY 08/02/19 08/02/19 Eye Vitamin 1 tab PO BID 08/02/19 08/02/19 Lisinopril [Zestril] 20 mg PO BID 08/02/19 08/02/19 amLODIPine [Norvasc] 5 mg PO DAILY@1200 08/02/19 08/02/19 traZODone HCL 50 mg PO HS 08/02/19 08/02/19 Previous Rx's Medication Instructions Recorded Ciprofloxacin HCl [Cipro] 500 mg PO Q12HR #14 tablet 08/02/19 Ondansetron Odt [Zofran ODT] 4 mg PO Q8HR PRN #10 tab 08/02/19 predniSONE 60 mg PO DAILY #30 tab 08/02/19 Allergies Allergy/AdvReac Type Severity Reaction Status Date / Time codeine AdvReac Nausea & Verified 08/02/19 08:17 Vomiting Review of Systems ROS Statement: Those systems with pertinent positive or pertinent negative responses have been documented in the HPI. ROS Other: All systems not noted in ROS Statement are negative. Constitutional: Reports: chills. Denies: fever Respiratory: Denies: cough, dyspnea Cardiovascular: Denies: chest pain, palpitations, syncope Gastrointestinal: Reports: abdominal pain, nausea, vomiting. Denies: diarrhea, constipation, hematemesis, melena, hematochezia Genitourinary: Denies: dysuria, hematuria Musculoskeletal: Denies: back pain Skin: Denies: rash Neurological: Denies: headache, weakness, numbness Past Medical History Past Medical History: Eye Disorder, GI Bleed, Hypertension Additional Past Medical History / Comment(s): back pain, sciatica, endometreosis(had hysterectomy), diverticulitis/colits, benign polyp removed, glaucoma(not on drops), osteoporosis. Current problems with diverticulitits and blood in stool. History of Any Multi-Drug Resistant Organisms: None Reported Past Surgical History: Appendectomy, Hysterectomy Additional Past Surgical History / Comment(s): colonoscopy/polypectomy Past Anesthesia/Blood Transfusion Reactions: No Reported Reaction Past Psychological History: Anxiety, Depression Smoking Status: Never smoker Past Alcohol Use History: None Reported Past Drug Use History: None Reported - Past Family History Father Family Medical History: Cancer, Myocardial Infarction ([place]) Additional Family Medical History / Comment(s): leukemia Mother Family Medical History: Cancer, CVA/TIA, Hypertension, Myocardial Infarction ([place]), Thyroid Disorder Additional Family Medical History / Comment(s): colon cancer, lived to be 99 Sister(s) Family Medical History: Cancer General Exam Limitations: no limitations General appearance: alert, in no apparent distress Head exam: Present: atraumatic, normocephalic Eye exam: Present: normal appearance. Absent: scleral icterus, conjunctival injection ENT exam: Present: normal oropharynx Neck exam: Present: normal inspection Respiratory exam: Present: normal lung sounds bilaterally. Absent: respiratory distress, wheezes, rales, rhonchi, stridor Cardiovascular Exam: Present: regular rate, normal rhythm, normal heart sounds. Absent: systolic murmur, diastolic murmur, rubs, gallop GI/Abdominal exam: Present: soft, tenderness (There is mild upper abdominal tenderness without rebound or guarding). Absent: distended, guarding, rebound, rigid, organomegaly Extremities exam: Present: normal inspection, normal capillary refill. Absent: pedal edema, calf tenderness Back exam: Present: normal inspection. Absent: CVA tenderness (R), CVA tenderness (L) Neurological exam: Present: alert Skin exam: Present: warm, dry, intact, normal color. Absent: rash Course Vital Signs 08/02/19 03:38 Temperature 97.8 F Pulse Rate 82 Respiratory 20 Rate Blood Pressure 135/76 O2 Sat by Pulse 97 Oximetry Medical Decision Making - Medical Decision Making Patient is 79-year-old woman with abdominal pain, nausea and vomiting. She is feeling better here following medications. The workup appears to show in exacerbation of colitis which she states she previously has had. At this point the patient is offered admission but she is declining stating she wants to try course of outpatient treatment and follow-up. Discussed appropriate follow-up and further care and incised that she should return immediately should the symptoms recur or if there is any worsening in anyway. Patient's daughters at the bedside and support her decision. - Lab Data Result diagrams: 08/02/19 04:34 08/02/19 04:34 Lab Results 08/02/19 08/02/19 08/02/19 Range/Units 04:34 04:34 04:34 WBC 8.1 (3.8-10.6) k/uL RBC 4.79 (3.80-5.40) m/uL Hgb 14.7 (11.4-16.0) gm/dL Hct 42.9 (34.0-46.0) % MCV 89.6 (80.0-100.0) fL MCH 30.6 (25.0-35.0) pg MCHC 34.1 (31.0-37.0) g/dL RDW 12.7 (11.5-15.5) % Plt Count 218 (150-450) k/uL Neutrophils % 86 % Lymphocytes % 11 % Monocytes % 1 % Eosinophils % 1 % Basophils % 0 % Neutrophils # 7.0 (1.3-7.7) k/uL Lymphocytes # 0.9 L (1.0-4.8) k/uL Monocytes # 0.1 (0-1.0) k/uL Eosinophils # 0.1 (0-0.7) k/uL Basophils # 0.0 (0-0.2) k/uL Sodium 136 L (137-145) mmol/L Potassium 4.0 (3.5-5.1) mmol/L Chloride 99 (98-107) mmol/L Carbon Dioxide 28 (22-30) mmol/L Anion Gap 9 mmol/L BUN 11 (7-17) mg/dL Creatinine 0.58 (0.52-1.04) mg/dL Est GFR (CKD-EPI)AfAm >90 (>60 ml/min/1.73 sqM) Est GFR (CKD-EPI)NonAf 88 (>60 ml/min/1.73 sqM) Glucose 147 H (74-99) mg/dL Plasma Lactic Acid Malcolm 1.5 (0.7-2.0) mmol/L Calcium 9.8 (8.4-10.2) mg/dL Total Bilirubin 2.3 H (0.2-1.3) mg/dL AST 304 H (14-36) U/L ALT 209 H (9-52) U/L Alkaline Phosphatase 99 (38-126) U/L Troponin I (0.000-0.034) ng/mL Total Protein 7.5 (6.3-8.2) g/dL Albumin 4.3 (3.5-5.0) g/dL Amylase 100 (30-110) U/L Lipase 337 H (23-300) U/L Urine Color Urine Appearance (Clear) Urine pH (5.0-8.0) Ur Specific [place] (1.001-1.035) Urine Protein (Negative) Urine Glucose (UA) (Negative) Urine Ketones (Negative) Urine Blood (Negative) Urine Nitrite (Negative) Urine Bilirubin (Negative) Urine Urobilinogen (<2.0) mg/dL Ur Leukocyte Esterase (Negative) Urine WBC (0-5) /hpf Urine Bacteria (None) /hpf Urine Mucus (None) /hpf 08/02/19 08/02/19 Range/Units 04:34 07:00 WBC (3.8-10.6) k/uL RBC (3.80-5.40) m/uL Hgb (11.4-16.0) gm/dL Hct (34.0-46.0) % MCV (80.0-100.0) fL MCH (25.0-35.0) pg MCHC (31.0-37.0) g/dL RDW (11.5-15.5) % Plt Count (150-450) k/uL Neutrophils % % Lymphocytes % % Monocytes % % Eosinophils % % Basophils % % Neutrophils # (1.3-7.7) k/uL Lymphocytes # (1.0-4.8) k/uL Monocytes # (0-1.0) k/uL Eosinophils # (0-0.7) k/uL Basophils # (0-0.2) k/uL Sodium (137-145) mmol/L Potassium (3.5-5.1) mmol/L Chloride (98-107) mmol/L Carbon Dioxide (22-30) mmol/L Anion Gap mmol/L BUN (7-17) mg/dL Creatinine (0.52-1.04) mg/dL Est GFR (CKD-EPI)AfAm (>60 ml/min/1.73 sqM) Est GFR (CKD-EPI)NonAf (>60 ml/min/1.73 sqM) Glucose (74-99) mg/dL Plasma Lactic Acid Malcolm (0.7-2.0) mmol/L Calcium (8.4-10.2) mg/dL Total Bilirubin (0.2-1.3) mg/dL AST (14-36) U/L ALT (9-52) U/L Alkaline Phosphatase (38-126) U/L Troponin I <0.012 (0.000-0.034) ng/mL Total Protein (6.3-8.2) g/dL Albumin (3.5-5.0) g/dL Amylase (30-110) U/L Lipase (23-300) U/L Urine Color Yellow Urine Appearance Clear (Clear) Urine pH 8.0 (5.0-8.0) Ur Specific [place] 1.012 (1.001-1.035) Urine Protein Trace H (Negative) Urine Glucose (UA) Negative (Negative) Urine Ketones 1+ H (Negative) Urine Blood Negative (Negative) Urine Nitrite Negative (Negative) Urine Bilirubin Negative (Negative) Urine Urobilinogen 3.0 (<2.0) mg/dL Ur Leukocyte Esterase Small H (Negative) Urine WBC 8 H (0-5) /hpf Urine Bacteria Rare H (None) /hpf Urine Mucus Occasional H (None) /hpf - EKG Data -: EKG Interpreted by [place] EKG shows normal: sinus rhythm, axis (Normal), intervals (Normal), QRS complexes (Normal), ST-T waves (Normal) Rate: normal (Rate 87 bpm) Interpretation: normal EKG Disposition Clinical Impression: Colitis, Abdominal pain Disposition: HOME SELF-CARE Condition: Fair Instructions (If sedation given, give patient instructions): Abdominal Pain (ED), Colitis (ED) Prescriptions: Ciprofloxacin HCl [Cipro] 500 mg PO Q12HR #14 tablet predniSONE 60 mg PO DAILY #30 tab Ondansetron Odt [Zofran ODT] 4 mg PO Q8HR PRN #10 tab PRN Reason: Nausea Is patient prescribed a controlled substance at d/c from ED?: No Referrals: Bhanu Vicente MD [Primary Care Provider] - 1-2 days Elsa Plata MD [STAFF PHYSICIAN] - 1-2 days
[2019-08-02 04:49] LABS: Basophils % (A) 0 %; Eosinophils # (A) 0.1 k/uL (0-0.7); Eosinophils % (A) 1 %; HCT 42.9 % (34.0-46.0); HGB 14.7 gm/dL (11.4-16.0); Lymphocytes # (A) 0.9 k/uL (1.0-4.8); Lymphocytes % (A) 11 %; MCH 30.6 pg (25.0-35.0); MCHC 34.1 g/dL (31.0-37.0); MCV 89.6 fL (80.0-100.0); Mean Platelet Volume 5.8; Monocytes # (A) 0.1 k/uL (0-1.0); Monocytes % (A) 1 %; Neutrophils % (A) 86 %; Platelet Count 218 k/uL (150-450); RBC 4.79 m/uL (3.80-5.40); RDW 12.7 % (11.5-15.5); WBC 8.1 k/uL (3.8-10.6)
[2019-08-02 04:54] LABS: ALT 209 U/L (9-52); AST 304 U/L (14-36); African American GFR (CKD) >90 (>60 ml/min/1.73 sqM); Albumin 4.3 g/dL (3.5-5.0); Alkaline Phosphatase 99 U/L (38-126); Amylase 100 U/L (30-110); Anion Gap 9 mmol/L; Blood Urea Nitrogen 11 mg/dL (7-17); Calcium 9.8 mg/dL (8.4-10.2); Carbon Dioxide 28 mmol/L (22-30); Chloride 99 mmol/L (98-107); Glucose 147 mg/dL (74-99); Sodium 136 mmol/L (137-145); Total Bilirubin 2.3 mg/dL (0.2-1.3); Total Protein 7.5 g/dL (6.3-8.2)
[2019-08-02] MEDS ORDERED: SODIUM CHLORIDE 0.9% 500 ML 500 ML IV STA (05:28)
[2019-08-02] MEDS ORDERED: ONDANSETRON 4 MG/2 ML VIAL IVP STA (05:28)
[2019-08-02 07:21] LABS: Appearance,Urine Clear (Clear); Bacteria,Urine Rare /hpf; Bilirubin,Urine Negative (Negative); Blood,Urine Negative (Negative); Color,Urine Yellow; Glucose,Urine (UA) Negative (Negative); Ketones,Urine 1+ (Negative); Leukocyte Esterase,Urine Small (Negative); Mucus,Urine Occasional /hpf; Nitrite,Urine Negative (Negative); Protein,Urine Trace (Negative); Specific Gravity,Urine 1.012 (1.001-1.035); WBC,Urine 8 /hpf (0-5)
--- NOTE | 2019-08-02 08:02 | CT ---
EXAMINATION TYPE: CT abdomen pelvis wo con DATE OF EXAM: 08/02/2019 COMPARISON: 12/23/2016 HISTORY: Abdominal pain. Right upper quadrant abdominal pain with vomiting. History of benign polyp r emoval and appendectomy. Patient describes gallbladder surgery however the gallbladder is clearly see n on the prior exam and today's exam. CT DLP: 400.4 mGycm Automated exposure control for dose reduction was used. TECHNIQUE: Helical acquisition of images was performed from the lung bases through the pelvis. FINDINGS: Lack of intravenous and oral contrast limit evaluation of both the hollow and solid viscera . LUNG BASES: Left basilar atelectasis now has a nodular component inferiorly at the left lung base murray suring 6 mm. LIVER/GB: The previously seen hypoattenuated hepatic lesions, mostly hepatic cysts, and some that are too small to accurately characterize are much better delineated on the exam of 12/23/2016 given intrav enous contrast at that time. Left hepatic lobe appears atrophic. Punctate calcification is seen in th e residual left hepatic lobe near the dome of diaphragm. Gallbladder demonstrates no radiopaque calcu li. PANCREAS: Unremarkable unenhanced morphology. No discrete ductal dilatation. Internal focus of fat is seen within the uncinate process. SPLEEN: No significant abnormality is seen. ADRENALS: There is thickening of the adrenal glands, particularly on the left, most commonly related to adrenal gland hyperplasia. KIDNEYS: No hydronephrosis or nephrolithiasis. FREE AIR: No free air is visualized URINARY BLADDER: No significant abnormality is seen. ADENOPATHY: None visualized. OSSEOUS STRUCTURES: Diffuse osseous demineralization is seen. Mild degenerative changes of the spine and moderate of the hips, left greater than right. Calcification of the left hip labrum. BOWEL: There is pericolonic fat stranding surrounding the ascending colon and terminal ileum with lo ng segment thickening of the ascending colon and hepatic flexure as well as the proximal and mid coughlin sverse colon. Descending colon and sigmoid colon demonstrate diverticulosis without evidence of peric olonic fat stranding. No pericolonic fluid collection to suggest abscess. OTHER: There is a small periumbilical fat filled hernia. IMPRESSION: 1. ACUTE UNCOMPLICATED ASCENDING, HEPATIC FLEXURE, AND TRANSVERSE COLITIS. NO PNEUMOPERITONEUM OR PER ICOLONIC FLUID COLLECTION. 2. PATIENT STATES A PRIOR HISTORY OF CHOLECYSTECTOMY HOWEVER THE GALLBLADDER IS CLEARLY SEEN WITHOUT CALCULI ON CT. 3. NUMEROUS HYPOATTENUATED HEPATIC LESIONS, SOME OF WHICH APPEAR CYSTS AND SOME ARE TOO SMALL TO A CCURATELY CHARACTERIZE. 4. NODULAR COMPONENT OF THE LEFT BASILAR ATELECTASIS AND PLEURAL PARENCHYMAL SCARRING FOR WHICH FOLLO W-UP CT THORAX IS RECOMMENDED IN 6 MONTHS TO ENSURE NO INTERVAL GROWTH.
[2019-08-02] MEDS ORDERED: predniSONE 20 MG TAB PO STA (08:15)
[2019-08-02] MEDS ORDERED: LEVOFLOXACIN 750 MG TAB PO STA (08:15)
== END 2019-08-02 08:57 | disposition home or self-care (01) ==
LOC: EC 03:33
DX: K52.9 Noninfective gastroenteritis and colitis, unspecified (principal); I10 Essential (primary) hypertension; F41.9 Anxiety disorder, unspecified; F32.9 Major depressive disorder, single episode, unspecified; Z79.02 Long term (current) use of antithrombotics/antiplatelets; Z79.899 Other long term (current) drug therapy; Z88.5 Allergy status to narcotic agent; Z90.89 Acquired absence of other organs; Z90.710 Acquired absence of both cervix and uterus
CPT/HCPCS: 36415; 80053; 82150; 83605; 83690; 84484; 85025; 81001; 74176; 99284; 96374; 96361; J2405; J7512

== ENCOUNTER → 2019-08-20 | Outpatient (CLI) | payer MEDICARE, BC ==
--- NOTE | 2019-08-20 07:32 | US ---
EXAMINATION TYPE: US abdomen limited DATE OF EXAM: 08/20/2019 COMPARISON: Ultrasound dated 12/20/[address] dated 08/02/2019 CLINICAL HISTORY: R68.89 Other general symptoms and signs. Liver lesions visualized on CT EXAM MEASUREMENTS: Liver Length: 13.4 cm Gallbladder Wall: 0.2 cm CBD: 0.5 cm Right Kidney: 9.8 x 3.7 x 4.6 cm Pancreas: wnl as seen Liver: Only two cysts visualized within right lobe- 1.5 cm and 0.8 cm/ Possible sub-centimeter, hype rechoic lesions scattered throughout liver. Background hepatic echotexture is coarsened. Gallbladder: Possible adenomyomatosis anterior wall as there is comet tail artifact. This appears se gmental. Evidence for sonographic Peterson's sign: No CBD: wnl Right Kidney: wnl IMPRESSION: 1. Gallbladder demonstrates appearance of segmental adenomyomatosis. 2. Coarsened hepatic echotexture as seen on the prior of 2009 could represent early hepatic steatosis or other hepatocellular disease. Few hepatic cysts are demonstrated with additional subcentimeter po ssible hyperechoic lesions versus background heterogeneity. Most commonly hyperechoic lesions relate to hemangiomas.
== END ==
LOC: RADUSWWP 06:49
PROVIDERS: ATTEND Internal Medicine
DX: K76.89 Other specified diseases of liver (principal); R93.2 Abnormal findings on diagnostic imaging of liver and biliary tract
CPT/HCPCS: 76705

== ENCOUNTER → 2020-08-13 | Outpatient (CLI) | payer MEDICARE, BC ==
--- NOTE | 2020-08-13 12:45 | XR ---
EXAM TYPE: LUMBAR SPINE X RAY SERIES COMPARISON: 12/16/2016 HISTORY: Pain TECHNIQUE: 4 views are submitted. FINDINGS: Alignment is anatomic. The pedicles are intact. The transverse processes are intact. There is no s pondylolysis or spondylolisthesis. Diffuse osteopenia. Multilevel degenerative disc disease with sev ere changes L4-5. Multilevel facet arthropathy. IMPRESSION: 1. Multilevel degenerative disc disease and facet arthropathy.
== END | disposition home or self-care (01) ==
LOC: RADXRMAIN 12:12
PROVIDERS: ATTEND Internal Medicine
DX: M51.36 Other intervertebral disc degeneration, lumbar region (principal); M47.817 Spondylosis without myelopathy or radiculopathy, lumbosacral region
CPT/HCPCS: 72110

== ENCOUNTER → 2020-11-03 | Outpatient (CLI) | payer MEDICARE, BC ==
--- NOTE | 2020-11-03 19:17 | BD ---
EXAMINATION TYPE: Axial Bone Density DATE OF EXAM: 11/03/2020 COMPARISON: 12/31/2015 CLINICAL HISTORY: Postmenopausal screening Height: 5 FT 1 IN Weight: 115 FRAX RISK QUESTIONS: Alcohol (3 or more units per day): NO Family History (Parent hip fracture): NO Glucocorticoids (More than 3mos): NO (Ex: prednisone, prednisolone, methylprednisolone, dexamethasone, and hydrocortisone). History of Fracture in Adulthood: NO Secondary Osteoporosis: 1. Type 1 Diabetes: NO 2. Hyperthyroidism: NO 3. Menopause before 45: NO 4. Malnutrition: NO 5. Chronic liver disease: NO Rheumatoid Arthritis: NO Current Tobacco Use: NO RISK FACTORS HISTORY OF: Family History of Osteoporosis: NO Active: YES Diet low in dairy products/other sources of calcium: NO Postmenopausal woman: UNSURE Take estrogen and/or progesterone medications: NONE Lost more than 2 inches in height since high school: NO MEDICATIONS: Additional Medications: BLOOD PRESSURE MEDS, LISINOPRIL LEXAPRO, AMLODIPINE,TRASADONE, VIT D, EYE JOSEPH PPLEMENT, HYDROCHLOROTHIAZIDE Additional History: EXAM MEASUREMENTS: Bone mineral densitometry was performed using the [employer] System. Bone mineral density as measured about the Lumbar spine is: ----- L1-L4(G/cm2): 0.908 T Score Values are as follows: ----- L2: -2.7 ----- L3: -2.5 ----- L4: -1.3 ----- L1-L4: -2.3 Bone mineral density has: DECREASED -3.2 % since study of: 2015 Bone mineral density about the R hip (g/cm2): 0.601 Bone mineral density about the L hip (g/cm2): 0.660 T Score values are as follows: -----R Neck: -3.1 -----L Neck: -2.7 -----R Total: -2.7 -----L Total: -2.4 Bone mineral density has: DECREASED -13.6 % since study of: 2015 IMPRESSION: Osteoporosis (T Score less than -2.5). There is increased fracture risk and therapy is usually indicated based on age. Re-Screen 1-2 years. NOTE: T-SCORE=SD OF THE YOUNG ADULT MEAN.
== END | disposition home or self-care (01) ==
LOC: RADBDWWP 12:32
PROVIDERS: ATTEND Internal Medicine
DX: M81.0 Age-related osteoporosis without current pathological fracture (principal)
CPT/HCPCS: 77080

== ENCOUNTER 2021-09-08 13:13 | Inpatient (IN) | payer MEDICARE, BC ==
--- NOTE | 2021-09-08 13:39 | ED ---
General Adult HPI - General Chief complaint: Fall Stated complaint: Fall/hip pain Time Seen by Provider: 09/08/21 13:27 Source: EMS Mode of arrival: EMS Limitations: no limitations - History of Present Illness Initial comments: Dictation was produced using [employer] dictation software. please excuse any grammatical, word or spelling errors. Chief Complaint: 81-year-old female presents emergency Department with right hip pain History of Present Illness: Patient is an 81-year-old female presents to the emergency department for right hip pain. She has a large puppy. The puppy jumped on her back caused her to fall landing on her right side. She is complaining of right-sided hip pain. Patient does not take any anticoagulation medications. She denies any other complaints. Chest pain. No extremity pain. Denies any numbness and paresthesias to right lower extremity. The ROS documented in this emergency department record has been reviewed and confirmed by me. Those systems with pertinent positive or negative responses cobb ve been documented in the HPI. All other systems are other negative and/or noncontributory. PHYSICAL EXAM: General Impression: Alert and oriented x3, not in acute distress HEENT: Normocephalic atraumatic, extra-ocular movements intact, pupils equal and reactive to light bilaterally, mucous membranes moist. Cardiovascular: Heart regular rate and rhythm Chest: Able to complete full sentences, no retractions, no tachypnea Abdomen: abdomen soft, non-tender, non-distended, no organomegaly Musculoskeletal: Pulses present and equal in all extremities, no peripheral edema, slightly shortened right lower extremity no gross abnormality, mild palpatory tenderness to the right greater trochanter Motor: no focal deficits noted Neurological: CN II-XII grossly intact, no focal motor or sensory deficits noted Skin: Intact with no visualized rashes Psych: Normal affect and mood ED course: 81-year-old female presents to the emergency department for right hip pain after fall. Vital signs Upon arrival are within acceptable limits. Laboratory evaluation obtained. CBC remarkable. Coag panel is negative. Sodium is 126. Patient given IV fluids. Computed tomography scan of the head and C-spine shows no acute processes. Chest x-ray is atraumatic and nonacute. X-ray of the hip and pelvis shows impacted and mildly displaced subcapital right femoral neck fracture. Case discussed with Dr. Kovacs who is willing to accept patient's care to service. Medicine on consult. - Related Data Home Medications Medication Instructions Recorded Confirmed Latanoprost [Xalatan 0.005%] 1 drop BOTH EYES HS 12/07/18 08/02/19 ALPRAZolam [Xanax] 0.25 mg PO BID PRN 08/02/19 08/02/19 Carvedilol [Coreg] 12.5 mg PO BID 08/02/19 08/02/19 Ergocalciferol [Vitamin D2] 50,000 unit PO SA 08/02/19 08/02/19 Escitalopram [Lexapro] 10 mg PO DAILY 08/02/19 08/02/19 Eye Vitamin 1 tab PO BID 08/02/19 08/02/19 amLODIPine [Norvasc] 5 mg PO DAILY@1200 08/02/19 08/02/19 lisinopriL [Zestril] 20 mg PO BID 08/02/19 08/02/19 traZODone HCL 50 mg PO HS 08/02/19 08/02/19 Previous Rx's Medication Instructions Recorded Ciprofloxacin HCl [Cipro] 500 mg PO Q12HR #14 tablet 08/02/19 Ondansetron Odt [Zofran ODT] 4 mg PO Q8HR PRN #10 tab 08/02/19 predniSONE 60 mg PO DAILY #30 tab 08/02/19 Allergies Allergy/AdvReac Type Severity Reaction Status Date / Time codeine AdvReac Nausea & Verified 09/08/21 13:23 Vomiting Review of Systems ROS Statement: Those systems with pertinent positive or pertinent negative responses have been documented in the HPI. ROS Other: All systems not noted in ROS Statement are negative. Past Medical History Past Medical History: Eye Disorder, GI Bleed, Hypertension Additional Past Medical History / Comment(s): back pain, sciatica, endometreosis(had hysterectomy), diverticulitis/colits, benign polyp removed, glaucoma(not on drops), osteoporosis. Current problems with diverticulitits and blood in stool. History of Any Multi-Drug Resistant Organisms: None Reported Past Surgical History: Appendectomy, Hysterectomy Additional Past Surgical History / Comment(s): colonoscopy/polypectomy Past Anesthesia/Blood Transfusion Reactions: No Reported Reaction Past Psychological History: Anxiety, Depression Past Alcohol Use History: None Reported Past Drug Use History: None Reported - Past Family History Father Family Medical History: Cancer, Myocardial Infarction ([place]) Additional Family Medical History / Comment(s): leukemia Mother Family Medical History: Cancer, CVA/TIA, Hypertension, Myocardial Infarction ([place]), Thyroid Disorder Additional Family Medical History / Comment(s): colon cancer, lived to be 99 Sister(s) Family Medical History: Cancer General Exam Limitations: no limitations Course Vital Signs 09/08/21 13:16 Temperature 98 F Pulse Rate 64 Respiratory 18 Rate Blood Pressure 168/80 O2 Sat by Pulse 94 L Oximetry Medical Decision Making - Lab Data Result diagrams: 09/08/21 13:43 09/08/21 13:43 Lab Results 09/08/21 09/08/21 09/08/21 Range/Units 13:43 13:43 13:43 WBC 5.3 (3.8-10.6) k/uL RBC 4.17 (3.80-5.40) m/uL Hgb 13.2 (11.4-16.0) gm/dL Hct 37.9 (34.0-46.0) % MCV 91.0 (80.0-100.0) fL MCH 31.8 (25.0-35.0) pg MCHC 34.9 (31.0-37.0) g/dL RDW 12.2 (11.5-15.5) % Plt Count 268 (150-450) k/uL MPV 6.4 Neutrophils % 55 % Lymphocytes % 35 % Monocytes % 8 % Eosinophils % 0 % Basophils % 0 % Neutrophils # 2.9 (1.3-7.7) k/uL Lymphocytes # 1.8 (1.0-4.8) k/uL Monocytes # 0.4 (0-1.0) k/uL Eosinophils # 0.0 (0-0.7) k/uL Basophils # 0.0 (0-0.2) k/uL PT 10.6 (9.0-12.0) sec INR 1.0 (<1.2) APTT 21.0 L (22.0-30.0) sec Sodium 126 L (137-145) mmol/L Potassium 4.0 (3.5-5.1) mmol/L Chloride 92 L (98-107) mmol/L Carbon Dioxide 27 (22-30) mmol/L Anion Gap 7 mmol/L BUN 12 (7-17) mg/dL Creatinine 0.49 L (0.52-1.04) mg/dL Est GFR (CKD-EPI)AfAm >90 (>60 ml/min/1.73 sqM) Est GFR (CKD-EPI)NonAf >90 (>60 ml/min/1.73 sqM) Glucose 106 H (74-99) mg/dL Calcium 9.6 (8.4-10.2) mg/dL Disposition Clinical Impression: Hip fracture Disposition: ADMITTED IP TO THIS HOSP Condition: Fair Referrals: Bhanu Vicente MD [Primary Care Provider] - 1-2 days
[2021-09-08 13:57] LABS: Basophils % (A) 0 %; Eosinophils % (A) 0 %; HCT 37.9 % (34.0-46.0); HGB 13.2 gm/dL (11.4-16.0); Lymphocytes # (A) 1.8 k/uL (1.0-4.8); Lymphocytes % (A) 35 %; MCH 31.8 pg (25.0-35.0); MCHC 34.9 g/dL (31.0-37.0); Mean Platelet Volume 6.4; Monocytes # (A) 0.4 k/uL (0-1.0); Monocytes % (A) 8 %; Neutrophils # (A) 2.9 k/uL (1.3-7.7); Neutrophils % (A) 55 %; Platelet Count 268 k/uL (150-450); RBC 4.17 m/uL (3.80-5.40); RDW 12.2 % (11.5-15.5); WBC 5.3 k/uL (3.8-10.6)
[2021-09-08 14:05] LABS: African American GFR (CKD) >90 (>60 ml/min/1.73 sqM); Anion Gap 7 mmol/L; Blood Urea Nitrogen 12 mg/dL (7-17); Calcium 9.6 mg/dL (8.4-10.2); Carbon Dioxide 27 mmol/L (22-30); Chloride 92 mmol/L (98-107); Glucose 106 mg/dL (74-99); Non-African American GFR(CKD) >90 (>60 ml/min/1.73 sqM); Sodium 126 mmol/L (137-145)
[2021-09-08 14:20] LABS: Prothrombin Time 10.6 sec (9.0-12.0)
--- NOTE | 2021-09-08 14:32 | CT ---
EXAMINATION TYPE: CT brain tankine wo con DATE OF EXAM: 09/08/2021 COMPARISON: CT brain November 17, 2014 HISTORY: Fall injury with headache and neck pain. CT DLP: 1213.3 mGycm. Automated Exposure Control for Dose Reduction was Utilized. TECHNIQUE: CT scan of the head and cervical spine are performed without contrast. FINDINGS: There is no acute intracranial hemorrhage or midline shift identified. Mild ventricular a nd sulcal prominence now present. Ujuc-[id number]-[id number] low attenuation in the deep and periventricular wh ite matter now seen. The calvarium is intact. The globes are intact and the visualized sinuses are cl ear. Cervical spine is visualized in its entirety from C1 through upper thoracic levels and demonstrates s table and satisfactory alignment without evidence of acute fracture or dislocation. Prevertebral sof t tissue appears within normal limits. The C1-C2 articulation is within normal limits on the coronal images. Osseous structures are demineralized. Vertebral body heights are maintained. Equu-bw-glwfmtt e disc space narrowing C4-C5 level. Posterior spurring effacing the anterior thecal sac at this level . Axial images show some multilevel uncovertebral facet degenerative changes bilaterally. Mild calcifie d plaque left carotid bulb. There are scattered hypodense thyroid nodules including 1.8 cm lower pole left thyroid nodule coronal image 14. Nonemergent thyroid ultrasound follow-up is advised to further evaluate if this is not known finding. Lung apices show no pneumothorax. IMPRESSION: 1. There is no acute fracture or dislocation evident in the cervical spine. 2. No acute intracranial hemorrhage or midline shift is seen.
--- NOTE | 2021-09-08 14:36 | XR ---
EXAMINATION TYPE: XR chest 1V portable DATE OF EXAM: 09/08/2021 Comparison: 08/23/[address] cervical spine same day Clinical History: 81-year-old female with pain after fall Findings: Heart upper limits of normal in size. Aorta and pulmonary vasculature within normal limits. No consol idation or pleural effusion. Right paratracheal soft tissue prominence. Impression: 1. No acute cardiopulmonary process. 2. Right paratracheal soft tissue prominence. Review of the patient's CT cervical spine from today ows no mediastinal abnormality in the upper chest. Nonemergent follow-up contrast-enhanced CT chest c an assess the remainder of the mediastinum to exclude lymphadenopathy.
--- NOTE | 2021-09-08 14:37 | XR ---
EXAMINATION TYPE: AP view pelvis and 2 views right hip DATE OF EXAM: 09/08/2021 COMPARISON: 09/19/2016 HISTORY: 81-year-old female with pain after fall FINDINGS: There is an impacted and mildly displaced subcapital femoral neck fracture. Degenerative change of th e pubic symphysis. The pelvis is rotated. No subluxation or dislocation. IMPRESSION: Impacted and mildly displaced subcapital right femoral neck fracture.
[2021-09-08] MEDS ORDERED: NALOXONE 0.4 MG/ML 1 ML VIAL IV PRN (14:48)
[2021-09-08] MEDS: MORPHINE SULFATE 4 MG/ML SYRINGE IV PRN (16:12)
[2021-09-08] MEDS: LATANOPROST 0.005% OPHTH DROPS 2.5 ML BTL BOTH EYES SCH (21:46)
[2021-09-08] MEDS: DORZOLAMIDE-TIMOLOL 2.23%/0.68 10ML BTL BOTH EYES SCH (21:46)
[2021-09-08] MEDS: carvediloL 12.5 MG TAB PO SCH (21:46)
[2021-09-08] MEDS: lisinopriL 20 MG TAB PO SCH (21:46)
[2021-09-08] MEDS: traZODone HCL 50 MG TAB PO SCH (22:08)
[2021-09-08] MEDS: SODIUM CHLORIDE 0.9% 1,000 ML IV SCH ×2 (22:17→22:18)
[2021-09-09] MEDS ORDERED: LIDOCAINE 1% (10MG/ML) FOR IV START INTRADERMA PRN (00:23)
[2021-09-09] MEDS: SODIUM CHLORIDE 0.9% 1,000 ML IV SCH ×2 (02:10→21:27)
[2021-09-09] MEDS: LACTATED RINGERS 1,000 ML IV SCH ×2 (02:10→14:51)
[2021-09-09 06:47] LABS: Basophils % (A) 0 %; Eosinophils % (A) 1 %; HCT 38.3 % (34.0-46.0); HGB 13.4 gm/dL (11.4-16.0); Lymphocytes # (A) 1.4 k/uL (1.0-4.8); Lymphocytes % (A) 23 %; MCH 32.2 pg (25.0-35.0); MCHC 34.8 g/dL (31.0-37.0); MCV 92.5 fL (80.0-100.0); Mean Platelet Volume 6.5; Monocytes # (A) 0.5 k/uL (0-1.0); Monocytes % (A) 9 %; Neutrophils # (A) 3.8 k/uL (1.3-7.7); Neutrophils % (A) 65 %; Platelet Count 222 k/uL (150-450); RBC 4.15 m/uL (3.80-5.40); RDW 12.4 % (11.5-15.5); WBC 5.8 k/uL (3.8-10.6)
[2021-09-09 06:56] LABS: ALT 18 U/L (4-34); AST 22 U/L (14-36); African American GFR (CKD) >90 (>60 ml/min/1.73 sqM); Albumin 3.4 g/dL (3.5-5.0); Albumin/Globulin Ratio 1.2; Alkaline Phosphatase 67 U/L (38-126); Anion Gap 3 mmol/L; Blood Urea Nitrogen 12 mg/dL (7-17); Calcium 9.8 mg/dL (8.4-10.2); Carbon Dioxide 30 mmol/L (22-30); Chloride 96 mmol/L (98-107); Globulin 2.9 g/dL; Glucose 109 mg/dL (74-99); Non-African American GFR(CKD) 84 (>60 ml/min/1.73 sqM); Potassium 4.2 mmol/L (3.5-5.1); Sodium 129 mmol/L (137-145); Total Bilirubin 0.8 mg/dL (0.2-1.3); Total Protein 6.3 g/dL (6.3-8.2)
[2021-09-09] MEDS ORDERED: HYDROmorphone 0.5 MG/0.5 ML SYRINGE IVP PRN (07:00)
[2021-09-09] MEDS ORDERED: ONDANSETRON 4 MG/2 ML VIAL IVP PRN (07:00)
[2021-09-09] MEDS: VIT A,C & E-LUTEIN-MINERALS 1 EACH TAB PO SCH (07:17)
[2021-09-09] MEDS: ESCITALOPRAM 10 MG TAB PO SCH (07:17)
[2021-09-09] MEDS: DORZOLAMIDE-TIMOLOL 2.23%/0.68 10ML BTL BOTH EYES SCH ×2 (07:23→21:32)
[2021-09-09] MEDS: lisinopriL 20 MG TAB PO SCH ×2 (07:23→21:32)
[2021-09-09] MEDS: carvediloL 12.5 MG TAB PO SCH ×2 (07:23→21:32)
[2021-09-09] MEDS ORDERED: hydroCHLOROthiazide 25 MG TAB PO SCH (09:00)
--- NOTE | 2021-09-09 09:03 | P.HPOR ---
History of Present Illness H&P Date: 09/09/21 Chief Complaint: Right hip pain status post fall The patient is a very pleasant 81-year-old female who seen and examined today at bedside. She is accompanied by HER-2 daughters at bedside as well. The patient had a fall yesterday when her daughter's dog knocked her over at home. The patient fell onto her right side and had sudden acute pain at her right hip area she denies any loss of consciousness. She denies any chest pain shortness of breath. She denies any problems with her hip in the past. Normally she is a home ambulator without any assistance. She does not drive. She has limited activity outside the house but is able to get around without assistance with some standby help. She denies any pain at her hips prior to the injury. She denies any nausea or vomiting. She denies any changes in bowel bladder function. She denies any chest pain or shortness breath. She says she is unable to get in or out of bed currently because of her pain. She has great difficulty with any moving. Her pain is isolated around her right hip. She also has some soreness at her right shoulder. She has a history of some right shoulder pain in the past. She is not sure if it is significant changed. Review of Systems As stated per HPI. Denies chest patient's breath. Denies any loss. Denies Any Neck Pain. She Admits to Pain at Her Right Hip and Some Pain at Her Right Shoulder. Denies Any Other Pain. Denies Any Antecedent Pain at Her Hips. She lives at home with her daughter. She has help to course of the day and in the evenings. She is able to manage around the house on her own to some degree without any ambulatory assistance. Past Medical History Past Medical History: Eye Disorder, GI Bleed, Hypertension Additional Past Medical History / Comment(s): back pain, sciatica, endometreosis(had hysterectomy), diverticulitis/colits, benign polyp removed, glaucoma(not on drops), osteoporosis. Current problems with diverticulitits and blood in stool. History of Any Multi-Drug Resistant Organisms: None Reported Past Surgical History: Appendectomy, Hysterectomy Additional Past Surgical History / Comment(s): colonoscopy/polypectomy Past Anesthesia/Blood Transfusion Reactions: No Reported Reaction Past Psychological History: Anxiety, Depression Additional Psychological History / Comment(s): Patient has own property - has been staying with her family more frequently. Smoking Status: Never smoker Past Alcohol Use History: None Reported Past Drug Use History: None Reported - Past Family History Father Family Medical History: Cancer, Myocardial Infarction ([place]) Additional Family Medical History / Comment(s): leukemia Mother Family Medical History: Cancer, CVA/TIA, Hypertension, Myocardial Infarction ([place]), Thyroid Disorder Additional Family Medical History / Comment(s): colon cancer, lived to be 99 Sister(s) Family Medical History: Cancer Medications and Allergies Home Medications Medication Instructions Recorded Confirmed Type Latanoprost [Xalatan 0.005%] 1 drop BOTH EYES HS 12/07/18 09/08/21 History Ergocalciferol [Vitamin D2] 50,000 unit PO MO 08/02/19 09/08/21 History Escitalopram [Lexapro] 10 mg PO DAILY 08/02/19 09/08/21 History Eye Vitamin 1 tab PO DAILY 08/02/19 09/08/21 History lisinopriL [Zestril] 20 mg PO BID 08/02/19 09/08/21 History traZODone HCL 50 mg PO HS 08/02/19 09/08/21 History Carvedilol [Coreg] 25 mg PO BID 09/08/21 09/08/21 History Dorzolamide-Timol 2.23%/0.68% 1 drop BOTH EYES BID 09/08/21 09/08/21 History [Cosopt] amLODIPine BESYLATE [Norvasc] 2.5 mg PO DAILY@1200 09/08/21 09/08/21 History hydroCHLOROthiazide [Hydrodiuril] 25 mg PO DAILY 09/08/21 09/08/21 History Allergies Allergy/AdvReac Type Severity Reaction Status Date / Time codeine AdvReac Nausea & Verified 09/08/21 14:57 Vomiting Physical Examination Osteopathic Statement: *. No significant issues noted on an osteopathic structural exam other than those noted in the History and Physical/Consult. - Shoulder right Tenderness with palpation: anterior (She has some mild tenderness at her anterior right shoulder. There is no swelling no erythema. She has some pain with abduction over 60. Compartments are soft.) - Hip right Gait: other (Unable to ambulate or mobilize due to severe right hip pain) Tenderness with palpation: anterior (Significant pain at the right hip with any palpation. Thigh and calf soft nontender. Left hip is nontender to palpation range of motion.) Pain with motion: internal rotation and hip flexion (Right hip has significant pain with any sort of motion. She has sustained dorsal flexion plantarflexion a nd EHL intact.) Results - Labs Labs: Abnormal Lab Results - Last 24 Hours (Table) 09/08/21 09/08/21 09/09/21 Range/Units 13:43 13:43 06:29 APTT 21.0 L (22.0-30.0) sec Sodium 126 L 129 L (137-145) mmol/L Chloride 92 L 96 L (98-107) mmol/L Creatinine 0.49 L (0.52-1.04) mg/dL Glucose 106 H 109 H (74-99) mg/dL Albumin 3.4 L (3.5-5.0) g/dL H & H 09/08/21 09/09/21 Range/Units 13:43 06:09 Hgb 13.2 13.4 (11.4-16.0) gm/dL Hct 37.9 38.3 (34.0-46.0) % Coagulation 09/08/21 Range/Units 13:43 INR 1.0 (<1.2) Result Diagrams: 09/09/21 06:09 09/09/21 06:29 - Diagnostic results Hip x-ray: report reviewed, image reviewed (Pelvis and hip x-rays show a right femoral neck fracture with displacement and angulation. There is no obvious mass or bony process.) Assessment and Plan Assessment: Right hip femoral neck fracture, acute traumatic angulated and displaced due to a fall Inability to ambulate due to right hip fracture Right shoulder pain, possibly exacerbated due to fall Plan: Right hip femoral neck fracture, acute traumatic angulated and displaced due to a fall Inability to ambulate due to right hip fracture Right shoulder pain, possibly exacerbated due to fall In regards to the patient's right hip she has a new fracture at her femoral neck with angulation. I think the best course of treatment for the patient would be to pursue surgical intervention with right hip hemiarthroplasty. This would allow for the best chance for regaining mobilization ambulation and independence. We discussed the treatment options ranging from conservative to surgical. I discussed this with her and her daughters at bedside. We discussed the risk of occasions alternatives and benefits at length including but not limited to the risk of bleeding risk and infection risk and need for further surgery risk of decreased loss of motion loss of function hardware failure nerve damage as well as the fact that surgery may not alleviate her symptoms and there are possibilities of complications including . I discussed the nature of the patient's injury at length with the family and they understand and elect to proceed with surgical intervention. I discussed case with my partner Dr. Francisco Adamson who is a total joint specialist and we'll plan to proceed with surgical intervention as soon as possible today. The patient will remain nothing by mouth. Dr. Vicente is her primary care physician and will be seeing her today for medical evaluation and clearance for surgical intervention.
--- NOTE | 2021-09-09 09:29 | XR ---
EXAMINATION TYPE: XR shoulder limited RT DATE OF EXAM: 09/09/2021 COMPARISON: NONE HISTORY: Pain TECHNIQUE: 2 view submitted FINDINGS: Diffuse osteopenia and arthropathy of the AC joint. Slight irregularity along the lower mar gin of the glenoid. IMPRESSION: 1. CT of the right shoulder recommended to assess the scapula for hairline fracture.
[2021-09-09 12:30] LABS: Appearance,Urine Clear (Clear); Bacteria,Urine Rare /hpf; Bilirubin,Urine Negative (Negative); Blood,Urine Trace (Negative); Color,Urine Light Yellow; Glucose,Urine (UA) Negative (Negative); Ketones,Urine Negative (Negative); Leukocyte Esterase,Urine Small (Negative); Mucus,Urine Rare /hpf; Nitrite,Urine Negative (Negative); PH, Urine 6.5 (5.0-8.0); Protein,Urine Negative (Negative); RBC,Urine 2 /hpf (0-5); Specific Gravity,Urine 1.009 (1.001-1.035); Urobilinogen,Urine <2.0 mg/dL (<2.0); WBC,Urine 4 /hpf (0-5)
[2021-09-09] MEDS: amLODIPine 2.5 MG TAB PO SCH (12:43)
--- NOTE | 2021-09-09 13:08 | P.CONS ---
History of Present Illness - Reason for Consult Consult date: 09/09/21 - History of Present Illness Cheryl Lilly, is an 81-year-old female who presented to [facility] emergency room with a chief complaint of fall with right hip pain, patient states that she has a large dog and he jumped on her back and she fell down on her right hip she was unable to stand up and was having significant pain in the right hip she was brought to emergency room and was evaluated by Dr. Pelaez x-ray of the right hip revealed evidence of impacted and mildly displaced supple M right femoral neck fracture, patient was admitted and an orthopedic surgery, medical consultation was requested for clearance for surgery and medical management while hospitalized. On arrival to emergency room patient had vital examination that revealed a temperature of 98 pulse 64 respiration 18 blood pressure 168/80 pulse ox 94% on room air Laboratory data revealed a white blood count of 5.3 hemoglobin 13.2 platelet count 268 INR 1.0 sodium 126 potassium 4.0 chloride 92 CO2 27 BUN 12 creatinine 0.49 Diaz virus PCR was negative. Patient is well known to my practice she has a known history of hypertension, depression with anxiety disorder, gastroesophageal reflux disease, osteoarthritis, history of colon polyps and diverticulosis. On review of systems patient is complaining of pain in her right hip otherwise she denies any complaints there is no fever or chills no headache or dizziness no chest pain no shortness of breath no cough no nausea or vomiting no abdominal pain no diarrhea no blood in the stools no burning with urination no frequency or urgency and no hematuria. Past Medical History Past Medical History: Eye Disorder, GI Bleed, Hypertension Additional Past Medical History / Comment(s): back pain, sciatica, endometreosi s(had hysterectomy), diverticulitis/colits, benign polyp removed, glaucoma(not on drops), osteoporosis. Current problems with diverticulitits and blood in stool. History of Any Multi-Drug Resistant Organisms: None Reported Past Surgical History: Appendectomy, Hysterectomy Additional Past Surgical History / Comment(s): colonoscopy/polypectomy Past Anesthesia/Blood Transfusion Reactions: No Reported Reaction Past Psychological History: Anxiety, Depression Additional Psychological History / Comment(s): Patient has own property - has been staying with her family more frequently. Smoking Status: Never smoker Past Alcohol Use History: None Reported Past Drug Use History: None Reported - Past Family History Father Family Medical History: Cancer, Myocardial Infarction ([place]) Additional Family Medical History / Comment(s): leukemia Mother Family Medical History: Cancer, CVA/TIA, Hypertension, Myocardial Infarction ([place]), Thyroid Disorder Additional Family Medical History / Comment(s): colon cancer, lived to be 99 Sister(s) Family Medical History: Cancer Medications and Allergies Home Medications Medication Instructions Recorded Confirmed Type Latanoprost [Xalatan 0.005%] 1 drop BOTH EYES HS 12/07/18 09/08/21 History Ergocalciferol [Vitamin D2] 50,000 unit PO MO 08/02/19 09/08/21 History Escitalopram [Lexapro] 10 mg PO DAILY 08/02/19 09/08/21 History Eye Vitamin 1 tab PO DAILY 08/02/19 09/08/21 History lisinopriL [Zestril] 20 mg PO BID 08/02/19 09/08/21 History traZODone HCL 50 mg PO HS 08/02/19 09/08/21 History Carvedilol [Coreg] 25 mg PO BID 09/08/21 09/08/21 History Dorzolamide-Timol 2.23%/0.68% 1 drop BOTH EYES BID 09/08/21 09/08/21 History [Cosopt] amLODIPine BESYLATE [Norvasc] 2.5 mg PO DAILY@1200 09/08/21 09/08/21 History hydroCHLOROthiazide [Hydrodiuril] 25 mg PO DAILY 09/08/21 09/08/21 History Allergies Allergy/AdvReac Type Severity Reaction Status Date / Time codeine AdvReac Nausea & Verified 09/08/21 14:57 Vomiting Physical Exam Vitals: Vital Signs Temp Pulse Pulse Resp BP BP Pulse Ox 09/09/21 08:00 98.4 F 69 16 133/71 97 09/09/21 07:22 80 161/77 09/09/21 01:11 97.8 F 67 110/71 94 L 09/08/21 19:38 97.5 F L 77 127/76 94 L 09/08/21 16:11 66 18 155/83 96 09/08/21 13:16 98 F 64 18 168/80 94 L Intake and Output 09/08/21 09/09/21 09/09/21 22:59 06:59 14:59 Intake Total 420 Output Total 350 1200 Balance -350 -780 Intake: Intake, IV Titration 300 Amount Sodium Chloride 0.9% 1, 300 000 ml @ 75 mls/hr IV . [id number] [facility] Rx#:[id number] Oral 120 Output: Urine 350 1200 Uretheral (Marie) 350 Other: Voiding Method Indwelling Catheter # Voids 1 Weight 54.431 kg In general patient is alert and oriented x 3 in no distress HEENT head normocephalic and atraumatic Neck is supple no JVD no goiter no lymphadenopathy no carotid bruit Chest examination is clear to auscultation no crackles no wheezing Cardiac exam reveals regular heart sounds S1 and S2 no gallops no murmurs Abdomen is soft nontender no organomegaly with normal bowel sounds Extremity exam reveals no edema no cyanosis or clubbing Neurological examination reveals no gross focal deficits Results CBC & Chem 7: 09/09/21 06:09 09/09/21 06:29 Labs: Abnormal Lab Results - Last 24 Hours (Table) 09/08/21 09/08/21 09/09/21 Range/Units 13:43 13:43 06:29 APTT 21.0 L (22.0-30.0) sec Sodium 126 L 129 L (137-145) mmol/L Chloride 92 L 96 L (98-107) mmol/L Creatinine 0.49 L (0.52-1.04) mg/dL Glucose 106 H 109 H (74-99) mg/dL Albumin 3.4 L (3.5-5.0) g/dL Assessment and Plan Plan: Fall with right hip fracture Underlying history of hypertension maintained on multiple blood pressure medications Evidence of hyponatremia on presentation, hydrochlorothiazide was discontinued and patient was started on normal saline IV fluid Cardiac-banks there is no history of cardiac disease , patient had an echoc ardiogram in December 2019 which was essentially normal . EKG was done yesterday and reviewed and reveals normal sinus rhythm normal EKG Urine analysis done and there is no convincing evidence of urinary tract infection Underlying history of depression with anxiety disorder At this time patient is admitted to medical floor There is no medical contraindication for surgery Continue normal saline and monitor electrolytes closely Home medications reviewed and reordered, will monitor blood pressure closely and use IV hydralazine if necessary. Will follow during this admission
[2021-09-09] MEDS: MORPHINE SULFATE 4 MG/ML SYRINGE IV PRN (17:34)
[2021-09-09] MEDS: LATANOPROST 0.005% OPHTH DROPS 2.5 ML BTL BOTH EYES SCH (21:32)
[2021-09-09] MEDS: ACETAMINOPHEN TAB 325 MG TAB PO PRN (21:32)
[2021-09-09] MEDS: traZODone HCL 50 MG TAB PO SCH (21:32)
[2021-09-10] MEDS: MORPHINE SULFATE 4 MG/ML SYRINGE IV PRN (05:33)
[2021-09-10] MEDS: SODIUM CHLORIDE 0.9% 1,000 ML IV SCH (05:35)
[2021-09-10] MEDS: carvediloL 12.5 MG TAB PO SCH ×2 (08:15→23:01)
[2021-09-10] MEDS: lisinopriL 20 MG TAB PO SCH ×2 (08:16→23:01)
[2021-09-10 09:30] LABS: Basophils % (A) 0 %; Eosinophils # (A) 0.1 k/uL (0-0.7); Eosinophils % (A) 1 %; HCT 38.1 % (34.0-46.0); Lymphocytes % (A) 16 %; MCH 31.4 pg (25.0-35.0); MCV 92.4 fL (80.0-100.0); Mean Platelet Volume 6.5; Monocytes # (A) 0.5 k/uL (0-1.0); Monocytes % (A) 9 %; Neutrophils # (A) 4.3 k/uL (1.3-7.7); Neutrophils % (A) 72 %; Platelet Count 202 k/uL (150-450); RBC 4.12 m/uL (3.80-5.40); RDW 12.2 % (11.5-15.5); WBC 5.9 k/uL (3.8-10.6)
[2021-09-10 09:45] LABS: ALT 16 U/L (4-34); AST 21 U/L (14-36); African American GFR (CKD) >90 (>60 ml/min/1.73 sqM); Albumin 3.1 g/dL (3.5-5.0); Albumin/Globulin Ratio 1.1; Alkaline Phosphatase 58 U/L (38-126); Anion Gap 4 mmol/L; Blood Urea Nitrogen 9 mg/dL (7-17); Calcium 9.3 mg/dL (8.4-10.2); Carbon Dioxide 29 mmol/L (22-30); Chloride 99 mmol/L (98-107); Globulin 2.8 g/dL; Glucose 128 mg/dL (74-99); Non-African American GFR(CKD) >90 (>60 ml/min/1.73 sqM); Potassium 3.8 mmol/L (3.5-5.1); Sodium 132 mmol/L (137-145); Total Bilirubin 0.8 mg/dL (0.2-1.3); Total Protein 5.9 g/dL (6.3-8.2)
--- NOTE | 2021-09-10 09:53 | P.PN ---
Subjective Progress Note Date: 09/10/21 Cheryl Lilly, is an 81-year-old female who presented to [facility] emergency room with a chief complaint of fall with right hip pain, patient states that she has a large dog and he jumped on her back and she fell down on her right hip she was unable to stand up and was having significant pain in the right hip she was brought to emergency room and was evaluated by Dr. Pelaez x-ray of the right hip revealed evidence of impacted and mildly displaced supple M right femoral neck fracture, patient was admitted and an orthopedic surgery, medical consultation was requested for clearance for surgery and medical management while hospitalized. On arrival to emergency room patient had vital examination that revealed a temperature of 98 pulse 64 respiration 18 blood pressure 168/80 pulse ox 94% on room air Laboratory data revealed a white blood count of 5.3 hemoglobin 13.2 platelet count 268 INR 1.0 sodium 126 potassium 4.0 chloride 92 CO2 27 BUN 12 creatinine 0.49 Diaz virus PCR was negative. Patient is well known to my practice she has a known history of hypertension, depression with anxiety disorder, gastroesophageal reflux disease, osteoarthritis, history of colon polyps and diverticulosis. On review of systems patient is complaining of pain in her right hip otherwise she denies any complaints there is no fever or chills no headache or dizziness no chest pain no shortness of breath no cough no nausea or vomiting no abdominal pain no diarrhea no blood in the stools no burning with urination no frequency or urgency and no hematuria. On 09/10/2021 patient is resting comfortably in bed. Still awaiting surgical intervention due to unavailability of OR yesterday. Patient having intermittent confusion after receiving morphine currently improved. Sodium improving to 132. Family is at bedside all questions answered. She denies chest pain or shortness of breath. Patient denies nausea vomiting or diarrhea. Patient denies any urinary burning or frequency. Tentative plans for surgical intervention today Objective - Vital Signs Vital signs: Vital Signs Temp 98.0 F 09/10/21 02:00 Pulse 82 09/10/21 07:52 Resp 18 09/10/21 07:52 BP 172/63 09/10/21 07:52 Pulse Ox 94 L 09/10/21 07:52 Intake & Output 09/09/21 09/10/21 09/10/21 18:59 06:59 18:59 Intake Total 1480 Output Total 500 1100 Balance -500 380 Intake: Intake, IV Titration 900 Amount Sodium Chloride 0.9% 1, 900 000 ml @ 75 mls/hr IV . [id number] [facility] Rx#:[id number] Oral 580 Output: Urine 500 1100 Other: Voiding Method Indwelling Catheter Indwelling Catheter # Voids 1 1 - Exam In general patient is alert and oriented x 3 in no distress HEENT head normocephalic and atraumatic Neck is supple no JVD no goiter no lymphadenopathy no carotid bruit Chest examination is clear to auscultation no crackles no wheezing Cardiac exam reveals regular heart sounds S1 and S2 no gallops no murmurs Abdomen is soft nontender no organomegaly with normal bowel sounds Extremity exam reveals no edema no cyanosis or clubbing Neurological examination reveals no gross focal deficits - Labs CBC & Chem 7: 09/10/21 09:18 09/10/21 09:18 Labs: Abnormal Lab Results - Last 24 Hours (Table) 09/09/21 09/10/21 Range/Units 12:00 09:18 Sodium 132 L (137-145) mmol/L Glucose 128 H (74-99) mg/dL Total Protein 5.9 L (6.3-8.2) g/dL Albumin 3.1 L (3.5-5.0) g/dL Urine Blood Trace H (Negative) Ur Leukocyte Esterase Small H (Negative) Urine Bacteria Rare H (None) /hpf Urine Mucus Rare H (None) /hpf Assessment and Plan Plan: Fall with right hip fracture Underlying history of hypertension maintained on multiple blood pressure medications Evidence of hyponatremia on presentation, hydrochlorothiazide was discontinued and patient was started on normal saline IV fluid Cardiac-banks there is no history of cardiac disease , patient had an echocardiogram in December 2019 which was essentially normal . EKG was done yesterday and reviewed and reveals normal sinus rhythm normal EKG Urine analysis done and there is no convincing evidence of urinary tract infection Underlying history of depression with anxiety disorder At this time patient is admitted to medical floor There is no medical contraindication for surgery Continue normal saline and monitor electrolytes closely Home medications reviewed and reordered, will monitor blood pressure closely and use IV hydralazine if necessary. Will follow during this admission
[2021-09-10] MEDS: VIT A,C & E-LUTEIN-MINERALS 1 EACH TAB PO SCH (10:30)
[2021-09-10] MEDS: DORZOLAMIDE-TIMOLOL 2.23%/0.68 10ML BTL BOTH EYES SCH (10:30)
[2021-09-10] MEDS: ESCITALOPRAM 10 MG TAB PO SCH (10:30)
[2021-09-10] MEDS: amLODIPine 2.5 MG TAB PO SCH (12:28)
[2021-09-10] MEDS ORDERED: ROPIVACAINE/EPI/CLONIDINE/KET 50 ML SYRINGE MISCELLANE PRN (13:28)
[2021-09-10] MEDS ORDERED: MORPHINE SULFATE 2 MG/ML SYRINGE IVP PRN (13:32)
[2021-09-10] MEDS ORDERED: ACETAMINOPHEN IV (For NPO) 1,000 MG in EMPTY BAG 1 BAG IVPB ONE (14:15)
[2021-09-10] MEDS ORDERED: IV FLUID CONTINUATION 1,000 ML IV ONE (15:11)
[2021-09-10] MEDS ORDERED: ONDANSETRON 4 MG/2 ML VIAL ONE (15:12)
[2021-09-10] MEDS ORDERED: DEXAMETHASONE SOD PHOSPHATE 4 MG/ML 1 ML VIAL IV ONE (15:19)
[2021-09-10] MEDS ORDERED: ONDANSETRON 4 MG/2 ML VIAL IVP ONE (15:19)
[2021-09-10] MEDS ORDERED: NEOSTIGMINE 1 MG/ML 10 ML VIAL ONE (16:35)
[2021-09-10] MEDS ORDERED: PROPOFOL 10 MG/ML 20 ML VIAL IV ONE (16:35)
[2021-09-10] MEDS ORDERED: ROCURONIUM 10 MG/ML (5 ML VIAL) IV ONE (16:35)
[2021-09-10] MEDS ORDERED: hydrALAZINE HCL 20 MG/ML 1 ML VIAL ONE (16:35)
[2021-09-10] MEDS ORDERED: LIDOCAINE 1% INJ 10MG/ML (20 ML MDV) ONE (16:35)
[2021-09-10] MEDS ORDERED: SUCCINYLCHOLINE CHLORIDE 100 MG/5 ML SYR IV ONE (16:35)
[2021-09-10] MEDS ORDERED: fentaNYL (PF) 50 MCG/ML 2 ML AMP ONE (16:35)
[2021-09-10] MEDS ORDERED: TRANEXAMIC ACID 1,000 MG/10 ML VIAL ONE (16:35)
[2021-09-10] MEDS ORDERED: SODIUM CHLORIDE 0.9% 100 ML BAG ONE (16:35)
[2021-09-10] MEDS ORDERED: GLYCOPYRROLATE 0.2 MG/ML 2 ML VIAL ONE (16:35)
[2021-09-10] MEDS ORDERED: SODIUM CHLORIDE 0.9% 100 ML with ceFAZolin 2,000 MG IV ONE ×2 (16:38)
[2021-09-10] MEDS ORDERED: EPINEPHrine 1 MG/ML (MDV) 30 ML VIAL ONE (17:00)
[2021-09-10] MEDS ORDERED: SODIUM CHLORIDE 0.9% 1,000 ML BAG ONE (17:00)
[2021-09-10] MEDS: TRANEXAMIC ACID 1,000 MG in SODIUM CHLORIDE 0.9% 100 ML IVPB ONE ×2 (17:28→18:30)
[2021-09-10] MEDS ORDERED: LACTATED RINGERS 1,000 ML IV ONE (17:30)
[2021-09-10] MEDS ORDERED: ceFAZolin 3,000 MG in SODIUM CHLORIDE 0.9% IRRIGATIO 3,000 ML IRRIGATION ONE (17:37)
[2021-09-10] MEDS ORDERED: HYDROmorphone 0.2 MG/1 ML SYRINGE IVP PRN (19:04)
[2021-09-10] MEDS ORDERED: HYDROcodone/APAP 5-325MG 1 EACH TAB PO PRN ×2 (19:04)
[2021-09-10] MEDS ORDERED: HYDROmorphone 0.5 MG/0.5 ML SYRINGE IVP PRN ×2 (19:04)
--- NOTE | 2021-09-10 19:12 | P.OP ---
Date of Procedure: 09/10/21 Preoperative Diagnosis: Right subcapital femoral neck fracture Postoperative Diagnosis: Right subcapital femoral neck fracture Procedure(s) Performed: Right direct anterior hip hemiarthroplasty Implants: [place] accolade C #4 high offset stem, bipolar 49 mm head, -4 mm neck Anesthesia: CARL Surgeon: Francisco Adamson Associate Director Career Services #1: David Roque Estimated Blood Loss (ml): 150 IV fluids (ml): 1,200 Pathology: other (Femoral head sent to pathology) Condition: stable Disposition: PACU Indications for Procedure: The patient is a very pleasant 81-year-old female who sustained a ground-level fall when her dog jumped on her back this past Monday resulting in a minimally displaced subcapital femoral neck fracture. She was admitted under the care of my partner Dr. Joshi and cleared for surgery yesterday by internal medicine. Due to staffing issues and OR accessibility yesterday my partners were unable to bring her to the operating room despite being present and ready to perform surgery. Surgery was delayed until today. I volunteered to help and perform a hemiarthroplasty. I met with the patient and her daughters prior to surgery to discuss treatment options. I recommended a cemented hemiarthroplasty through a direct anterior approach. We discussed potential risks and complications of surgery including but not limited to risk of anesthesia, superficial infection, deep infection, delayed wound healing, damage to blood vessels or nerves, intraoperative fracture, postoperative fracture, dislocation, leg length discrepancy, thigh pain, groin pain on the progression of hip arthrit is, DVT, PE, other medical complications, and possibly loss of life or limb. The patient and her family understand these potential risks and also acknowledge other less common complications. They provided their verbal and written consent to go forward with surgery. Description of Procedure: The patient identified in preoperative holding and the correct right leg was mar zarachristiane with my initials. I reviewed the consent form with the patient and her daughter. All their questions were answered. The patient was then brought back to the operating room. She was positioned on the gurney where general anesthetic, preoperative antibiotics, and tranexamic acid were administered. The skin over the right hip was shaved with the clippers. Boot for the had a table were applied. The patient was then carefully transferred onto the Milana table and was secured with a peroneal post. All bony prominences were well- padded. A timeout was performed identifying the correct patient, operative extremity, and procedure. Fluoroscopy was brought in to take an AP pelvis with a metallic bar across the ischium to use for intraoperative reference to adjust leg length and offset. The right leg was then prepped and draped in the standard sterile fashion. I began by making a longitudinal incision for direct anterior approach to the hip. Skin incision with a scalpel and dissection was carried down carefully through the subcutaneous tissue with electrocautery. The fascia over the tensor was identified and incised with a scalpel in line with the skin incision. I bluntly developed the interval between the tensor and sartorius. A blunt tipped cobra was placed superior to the femoral neck. I dissected through the deep enveloping fascia of the tensor and controlled the circumflex vessels with bipolar sealer. The pre-capsular fat was elevated and a second blunt tipped cobra was placed inferior to the femoral neck. I developed the interval between the hip capsule and rectus muscle and placed a blunt tipped Burris over the anterior brim of the acetabulum. I then performed a capsulotomy. There was a large hematoma. The superior and inferior capsular leaflets were elevated and excised. The femoral neck fracture was identified. A neck cut was made just distal to the subcapital femoral neck fracture. Traction was applied to the Milana table in the femoral head was removed with a corkscrew, passed off to the back table, and sized to 49 mm. The acetabulum was inspected and found to be relatively free of degenerative changes. The proximal femur was then released of its capsular attachments and elevated with the Milana table lift extension. Entrance the canal was gained with a box osteotome and blunt-tipped canal sound. I then sequentially reamed until a size 4 broach was stable. I trialed and took measurements of leg length and offset. The hip was then carefully dislocated. The trial broach was removed. A cement restrictor was placed distally and the canal was prepared for cementing using pulsatile lavage and epinephrine-soaked gauze. Cement was then pressurized into the canal and a size 4 high offset collared stem was placed bringing the stem out of varus and held in appropriate version until the cement had hardened. The trunnion of the stem was then cleaned and the final head was impacted engaging the Snyder taper. The leg was brought up, the hip retractors were removed, and the hip was gently reduced. The hip was brought through range of motion on the Milana table and found to be stable. Final fluoroscopic images were taken. The wound was then thoroughly irrigated with sterile saline, a dilute Betadine soaked for 3 minutes, and chlorhexidine solution. A deep drain was placed. The wound was then closed in layers with monofilament our stitches for the fascia and deep layers and a 3-0 Monocryl and Dermabond for the skin. A silver impregnated adhesive dressing was applied over the wound and a drain sponge. The patient was then carefully taken off the Milana table and transferred to a [facility]. Once the boots were removed leg lengths felt equal. All instrument, sponge, and sharp counts were correct. The patient was then taken to the recovery room having tolerated the procedure well. David Roque PA-C was required as a skilled orthodontic technician assistant. Plan: The patient is going to weight-bear as tolerated on her right hip. She will receive 2 doses of postoperative antibiotics. DVT prophylaxis with aspirin 81 mg twice a day unless internal medicine would like stronger prophylaxis. Physical therapy for mobilization and gait training. Discharge planning and process.
[2021-09-10 22:46] LABS: Basophils % (A) 0 %; Eosinophils % (A) 0 %; HGB 12.8 gm/dL (11.4-16.0); Lymphocytes % (A) 12 %; MCH 33.3 pg (25.0-35.0); MCHC 36.4 g/dL (31.0-37.0); MCV 91.3 fL (80.0-100.0); Mean Platelet Volume 7.1; Monocytes # (A) 0.3 k/uL (0-1.0); Monocytes % (A) 4 %; Neutrophils # (A) 6.9 k/uL (1.3-7.7); Neutrophils % (A) 84 %; Platelet Count 196 k/uL (150-450); RBC 3.84 m/uL (3.80-5.40); RDW 12.2 % (11.5-15.5); WBC 8.3 k/uL (3.8-10.6)
[2021-09-10] MEDS: traZODone HCL 50 MG TAB PO SCH (23:01)
[2021-09-10] MEDS: SENNOSIDES-DOCUSATE SODIUM 1 EACH TAB PO SCH (23:01)
[2021-09-10] MEDS: LATANOPROST 0.005% OPHTH DROPS 2.5 ML BTL BOTH EYES SCH (23:02)
[2021-09-11] MEDS: TRANEXAMIC ACID 1,000 MG in SODIUM CHLORIDE 0.9% 100 ML IVPB ONE ×2 (01:37)
[2021-09-11] MEDS: LACTATED RINGERS 1,000 ML IV SCH ×4 (01:39→17:25)
[2021-09-11] MEDS: DORZOLAMIDE-TIMOLOL 2.23%/0.68 10ML BTL BOTH EYES SCH ×3 (01:43→20:53)
[2021-09-11] MEDS: SODIUM CHLORIDE 0.9% 1,000 ML IV SCH ×3 (01:49→23:33)
[2021-09-11] MEDS: ACETAMINOPHEN TAB 325 MG TAB PO PRN ×3 (03:34→20:52)
[2021-09-11] MEDS: carvediloL 12.5 MG TAB PO SCH ×2 (08:00→20:51)
[2021-09-11] MEDS: lisinopriL 20 MG TAB PO SCH ×2 (08:00→20:51)
[2021-09-11] MEDS: VIT A,C & E-LUTEIN-MINERALS 1 EACH TAB PO SCH (08:00)
[2021-09-11] MEDS: ESCITALOPRAM 10 MG TAB PO SCH (08:00)
--- NOTE | 2021-09-11 08:09 | XR ---
EXAMINATION TYPE: XR Hip Limited RT, [place] guidance operating room DATE OF EXAM: 09/10/2021 Comparison: None Clinical History: 81-year-old female HEMIARTHROPLASTY RIGHT HIP Findings: Intraoperative films demonstrating placement of right hip hemiarthroplasty. FLUOROSCOPY Fluoroscopy time of 39 seconds was used during right hip hemiarthroplasty. 4 image/s document/s the procedure. Impression: No acute cardiopulmonary process.
--- NOTE | 2021-09-11 10:10 | P.PN ---
Progress Note - Text Progress Note Date: 09/11/21 Orthopedics: History of present illness: Patient is a pleasant 81-year-old female who is seen and examined bedside with her family present for further evaluation regards to her right hip. Patient is status post right hip hemiarthroplasty for right hip femoral neck fracture performed yesterday, 09/10/2021, by Dr. Adamson. Postoperatively she is having much better improvement of her right hip pain. She is currently sitting at the bedside. Physical therapy is in the room and is going to help increase her mobility and ambulation. She does had a drain intact of the right hip. She did have 100 mL of blood from the drain over the last shift. She feels her right hip pain is well-controlled. She was experiencing some right shoulder pain status post fall and this has improved. She is able to perform active range of motion adequately at the right shoulder without difficulty or increased pain. She is not having any septic upper extremity pain. She is currently happy with her progress. Consultation has been placed for social work and case management for discharge possibly to rehab or home with home health services. Patient is continuing to be seen and examined by medicine for her other medical diagnoses including hypertension and hyponatremia presentation. Physical Exam Hip Hemiarthroplasty: Status post surgical day number 1 Patient is examined sitting upright at the bedside Patient is awake, alert, and oriented 3 Vital signs stable Good chest excursion with deep inspiration and expiration No signs or symptoms of DVT; no calf pain Lower extremity cuffs not currently in place bilaterally Dressing of the right hip is clean, dry, and intact; no erythema, purulence, or signs of infection No significant pain with palpation over the surgical site Drain intact of the right hip Full range of motion of ankles bilaterally Dorsiflexion, plantarflexion, and extensor hallucis longus positive sustained bilaterally Neurovascularly intact bilateral lower extremities Good active range of motion of bilateral upper extremities without increased pain or difficulty Assessment: Status post right hip hemiarthroplasty for right femoral neck fracture Status post fall Acute right shoulder pain status post fall in which the pain has subsided Right hip pain Hypertension Hyponatremia Plan: 1. Patient may continue to weight-bear as tolerated on the right lower ext remity; encouraged using a walker to aid in ambulation; patient may work with physical therapy to increase mobility and ambulation 2. Continue pain control 3. Drain will remain intact until tomorrow. If drainage is less than 100 mL over the shift we will discontinue the drain tomorrow 4. Medicine to continue following the patient for their other medical diagnoses including hypertension and hyponatremia 5. Patient will be started on aspirin 81 mg twice a day for anticoagulation 6. We'll continue to follow the patient closely 7. Patient will most likely remain in the hospital over the weekend with plans to discharge to rehab facility this coming Monday or be discharged home with home health services once cleared by medicine. Consultation has been placed with case management and social work for discharge planning. 8. Patient can follow-up with Dr. Shaggy David at [facility] in 2-3 weeks following discharge
[2021-09-11] MEDS: ASPIRIN 81 MG PO SCH ×2 (11:01→20:51)
[2021-09-11 11:29] LABS: Basophils # (A) 0.01 X 10*3/uL (0.00-0.10); Basophils % (A) 0.1 %; Eosinophils # (A) 0 X 10*3/uL (0.04-0.35); Eosinophils % (A) 0 %; HCT 30.5 % (37.2-46.3); HGB 10.5 g/dL (12.0-15.0); Lymphocytes # (A) 1.18 X 10*3/uL (0.90-5.00); Lymphocytes % (A) 14.8 %; MCH 30.6 pg (27.0-32.0); MCHC 34.4 g/dL (32.0-37.0); MCV 88.9 fL (80.0-97.0); Mean Platelet Volume 8.9 fL (9.5-12.2); Monocytes # (A) 0.79 X 10*3/uL (0.20-1.00); Monocytes % (A) 9.9 %; Neutrophils # (A) 5.95 X 10*3/uL (1.80-7.70); Neutrophils % (A) 74.7 %; Platelet Count 198 X 10*3/uL (140-440); RBC 3.43 X 10*6/uL (4.10-5.20); RDW 12.3 % (11.5-14.5); WBC 7.97 X 10*3/uL (4.50-10.00)
[2021-09-11 12:05] LABS: African American GFR (CKD) 102.7 (60.0-200.0); Albumin 3.1 g/dL (3.8-4.9); Albumin/Globulin Ratio 1.46 (1.60-3.17); Anion Gap 9.6 mmol/L (4.00-12.00); BUN/Creat Ratio 22.86 Ratio (12.00-20.00); Blood Urea Nitrogen 12.3 mg/dL (9.0-27.0); Carbon Dioxide 21.8 mmol/L (21.6-31.8); Globulin 2.1 g/dL (1.6-3.3); Non-African American GFR(CKD) 88.6 (60.0-200.0); Potassium 4.2 mmol/L (3.5-5.5); Total Bilirubin 0.6 mg/dL (0.30-1.20); Total Protein 5.1 g/dL (6.2-8.2)
[2021-09-11] MEDS: amLODIPine 2.5 MG TAB PO SCH (12:49)
--- NOTE | 2021-09-11 13:15 | P.PN ---
Subjective Progress Note Date: 09/11/21 Cheryl Lilly, is an 81-year-old female who presented to [facility] emergency room with a chief complaint of fall with right hip pain, patient states that she has a large dog and he jumped on her back and she fell down on her right hip she was unable to stand up and was having significant pain in the right hip she was brought to emergency room and was evaluated by Dr. Pelaez x-ray of the right hip revealed evidence of impacted and mildly displaced supple M right femoral neck fracture, patient was admitted and an orthopedic surgery, medical consultation was requested for clearance for surgery and medical management while hospitalized. On arrival to emergency room patient had vital examination that revealed a temperature of 98 pulse 64 respiration 18 blood pressure 168/80 pulse ox 94% on room air Laboratory data revealed a white blood count of 5.3 hemoglobin 13.2 platelet count 268 INR 1.0 sodium 126 potassium 4.0 chloride 92 CO2 27 BUN 12 creatinine 0.49 Diaz virus PCR was negative. Patient is well known to my practice she has a known history of hypertension, depression with anxiety disorder, gastroesophageal reflux disease, osteoarthritis, history of colon polyps and diverticulosis. On review of systems patient is complaining of pain in her right hip otherwise she denies any complaints there is no fever or chills no headache or dizziness no chest pain no shortness of breath no cough no nausea or vomiting no abdominal pain no diarrhea no blood in the stools no burning with urination no frequency or urgency and no hematuria. On 09/10/2021 patient is resting comfortably in bed. Still awaiting surgical intervention due to unavailability of OR yesterday. Patient having intermittent confusion after receiving morphine currently improved. Sodium improving to 132. Family is at bedside all questions answered. She denies chest pain or shortness of breath. Patient denies nausea vomiting or diarrhea. Patient denies any urinary burning or frequency. Tentative plans for surgical intervention today On 09/11/2021 patient was seen and examined on the medical floor she is alert and oriented 3 in no apparent distress her pain is well controlled at this time there is no fever or chills no headache or dizziness no chest pain no shortness of breath no cough no nausea or vomiting no abdominal pain no diarrhea no blood in the stools no burning with urination no frequency or urgency and no hematuria, patient underwent right anterior hip hemiarthroplasty yesterday, for DVT prophylaxis she is maintained on aspirin twice a day and SCD stockings Objective - Vital Signs Vital signs: Vital Signs Temp 98.2 F 09/11/21 09:31 Pulse 73 09/11/21 09:31 Resp 18 09/11/21 09:31 BP 131/71 09/11/21 09:31 Pulse Ox 92 L 09/11/21 09:31 Intake & Output 09/10/21 09/11/21 09/11/21 18:59 06:59 18:59 Intake Total 802 1125 Output Total 1250 700 Balance -448 425 Weight 54.431 kg 54.431 kg Intake: IV 802 100 Intake, IV Titration 725 Amount Lactated Ringers 1,000 ml 675 @ 100 mls/hr IV .Q10H FERNANDO Rx#:[id number] ceFAZolin 2 gm In Sodium 50 Chloride 0.9% 50 ml @ 100 mls/hr IVPB Q8HR FERNANDO Rx# :[id number] Oral 300 Output: Drainage 100 Right Hip 100 Urine 1100 600 Estimated Blood Loss 150 Other: Voiding Method Indwelling Catheter Indwelling Catheter - Exam In general patient is alert and oriented x 3 in no distress HEENT head normocephalic and atraumatic Neck is supple no JVD no goiter no lymphadenopathy no carotid bruit Chest examination is clear to auscultation no crackles no wheezing Cardiac exam reveals regular heart sounds S1 and S2 no gallops no murmurs Abdomen is soft nontender no organomegaly with normal bowel sounds Extremity exam reveals no edema no cyanosis or clubbing Neurological examination reveals no gross focal deficits - Labs CBC & Chem 7: 09/11/21 08:08 09/11/21 08:07 Assessment and Plan Plan: Fall with right hip fracture Underlying history of hypertension maintained on multiple blood pressure m edications Evidence of hyponatremia on presentation, hydrochlorothiazide was discontinued and patient was started on normal saline IV fluid Cardiac-banks there is no history of cardiac disease , patient had an echocardiogram in December 2019 which was essentially normal . EKG was done yesterday and reviewed and reveals normal sinus rhythm normal EKG Urine analysis done and there is no convincing evidence of urinary tract infection Underlying history of depression with anxiety disorder At this time patient is admitted to medical floor There is no medical contraindication for surgery Continue normal saline and monitor electrolytes closely Home medications reviewed and reordered, will monitor blood pressure closely and use IV hydralazine if necessary. Will follow during this admission
[2021-09-11] MEDS ORDERED: CALCIUM CARBONATE 500 MG CHEWABLE PO PRN (15:56)
[2021-09-11] MEDS: traZODone HCL 50 MG TAB PO SCH (20:51)
[2021-09-11] MEDS: SENNOSIDES-DOCUSATE SODIUM 1 EACH TAB PO SCH (20:51)
[2021-09-11] MEDS: LATANOPROST 0.005% OPHTH DROPS 2.5 ML BTL BOTH EYES SCH (20:53)
[2021-09-12] MEDS: ACETAMINOPHEN TAB 325 MG TAB PO PRN ×4 (02:13→22:25)
[2021-09-12] MEDS: LACTATED RINGERS 1,000 ML IV SCH ×3 (04:17→12:40)
[2021-09-12] MEDS: ESCITALOPRAM 10 MG TAB PO SCH (07:58)
[2021-09-12] MEDS: ASPIRIN 81 MG PO SCH ×2 (07:58→20:33)
[2021-09-12] MEDS: VIT A,C & E-LUTEIN-MINERALS 1 EACH TAB PO SCH (07:58)
[2021-09-12] MEDS: lisinopriL 20 MG TAB PO SCH ×2 (07:58→20:34)
[2021-09-12] MEDS: carvediloL 12.5 MG TAB PO SCH ×2 (07:58→20:34)
[2021-09-12] MEDS: DORZOLAMIDE-TIMOLOL 2.23%/0.68 10ML BTL BOTH EYES SCH ×2 (08:03→20:32)
[2021-09-12 09:04] LABS: African American GFR (CKD) 109.4 (60.0-200.0); Albumin/Globulin Ratio 1.39 (1.60-3.17); BUN/Creat Ratio 24.32 Ratio (12.00-20.00); Blood Urea Nitrogen 10.8 mg/dL (9.0-27.0); Calcium 8.6 mg/dL (8.7-10.3); Carbon Dioxide 23.6 mmol/L (21.6-31.8); Globulin 2.2 g/dL (1.6-3.3); Non-African American GFR(CKD) 94.4 (60.0-200.0); Potassium 3.8 mmol/L (3.5-5.5); Total Bilirubin 0.5 mg/dL (0.30-1.20); Total Protein 5.1 g/dL (6.2-8.2)
--- NOTE | 2021-09-12 10:07 | P.PN ---
Progress Note - Text Progress Note Date: 09/12/21 Postoperative day #2 Patient is seen and examined today at bedside. The patient has some pain around the surgical site as expected. Pain is being controlled with medication. She had less drainage from the Hemovac yesterday approximately 75 mL overnight. She is tolerating some of her diet she is not vomiting and she is not nauseous. She has been able to bear weight and has been able to mobilize with therapy small degree Physical Exam Afebrile with stable vital signs Abdomen is soft nontender. Chest has good excursion deep and space expiration The incision site is clean dry and intact. No erythema there is no purulence.the drain is removed. There is no active bleeding there is no erythema She has sustained dorsal flexion plantar flexion and EHL intact. Calves and thighs are soft and nontender. Extremities have not had neurologic change from prior to surgery. Calves and thighs were soft nontender without evidence of DVT. Assessment/Plan Postoperative day #2 status post right hip hemiarthroplasty for her acute traumatic from a neck fracture Patient is progressing as expected from the surgery. We will continue to increase the patient's mobilization with therapy. She is weightbearing as tolerated. She is making good progress and appears to be healing appropriately. The Hemovac is discontinued. We will continue pain control with oral or IV medications. She'll continue to increase her mobility and they're hoping to potentially go home tomorrow or Monday depending on her ability to mobilize safely with the possibility of home care versus rehab. They will continue to discuss these as she progresses. She'll continue medical management per medicine We'll continue to follow patient closely.
[2021-09-12 10:17] LABS: Basophils # (A) 0.01 X 10*3/uL (0.00-0.10); Basophils % (A) 0.2 %; Eosinophils # (A) 0.04 X 10*3/uL (0.04-0.35); Eosinophils % (A) 0.7 %; HCT 29.9 % (37.2-46.3); HGB 10.6 g/dL (12.0-15.0); Lymphocytes # (A) 1.27 X 10*3/uL (0.90-5.00); Lymphocytes % (A) 21.1 %; MCH 32.1 pg (27.0-32.0); MCHC 35.5 g/dL (32.0-37.0); MCV 90.6 fL (80.0-97.0); Mean Platelet Volume 8.8 fL (9.5-12.2); Monocytes % (A) 11.6 %; Neutrophils # (A) 3.97 X 10*3/uL (1.80-7.70); Neutrophils % (A) 66.1 %; Platelet Count 200 X 10*3/uL (140-440); RDW 12.7 % (11.5-14.5); WBC 6.01 X 10*3/uL (4.50-10.00)
--- NOTE | 2021-09-12 10:18 | P.PN ---
Subjective Progress Note Date: 09/12/21 Cheryl Lilly, is an 81-year-old female who presented to [facility] emergency room with a chief complaint of fall with right hip pain, patient states that she has a large dog and he jumped on her back and she fell down on her right hip she was unable to stand up and was having significant pain in the right hip she was brought to emergency room and was evaluated by Dr. Pelaez x-ray of the right hip revealed evidence of impacted and mildly displaced supple M right femoral neck fracture, patient was admitted and an orthopedic surgery, medical consultation was requested for clearance for surgery and medical management while hospitalized. On arrival to emergency room patient had vital examination that revealed a temperature of 98 pulse 64 respiration 18 blood pressure 168/80 pulse ox 94% on room air Laboratory data revealed a white blood count of 5.3 hemoglobin 13.2 platelet count 268 INR 1.0 sodium 126 potassium 4.0 chloride 92 CO2 27 BUN 12 creatinine 0.49 Diaz virus PCR was negative. Patient is well known to my practice she has a known history of hypertension, depression with anxiety disorder, gastroesophageal reflux disease, osteoarthritis, history of colon polyps and diverticulosis. On review of systems patient is complaining of pain in her right hip otherwise she denies any complaints there is no fever or chills no headache or dizziness no chest pain no shortness of breath no cough no nausea or vomiting no abdominal pain no diarrhea no blood in the stools no burning with urination no frequency or urgency and no hematuria. On 09/10/2021 patient is resting comfortably in bed. Still awaiting surgical intervention due to unavailability of OR yesterday. Patient having intermittent confusion after receiving morphine currently improved. Sodium improving to 132. Family is at bedside all questions answered. She denies chest pain or shortness of breath. Patient denies nausea vomiting or diarrhea. Patient denies any urinary burning or frequency. Tentative plans for surgical intervention today On 09/11/2021 patient was seen and examined on the medical floor she is alert and oriented 3 in no apparent distress her pain is well controlled at this time there is no fever or chills no headache or dizziness no chest pain no shortness of breath no cough no nausea or vomiting no abdominal pain no diarrhea no blood in the stools no burning with urination no frequency or urgency and no hematuria, patient underwent right anterior hip hemiarthroplasty yesterday, for DVT prophylaxis she is maintained on aspirin twice a day and SCD stockings on 09/12/2021 patient is alert and oriented resting in bed. Daughter at bedside. currently POD #2 per nursing staff patient having frequent urination. will check u/A. Denies chest pain or shortness or breath. Denies any nausea vomiting or diarrhea. surgical site clean dry and intact. drain in place. sodium 132 Objective - Vital Signs Vital signs: Vital Signs Temp 98.2 F 09/12/21 08:00 Pulse 75 09/12/21 08:00 Resp 18 09/12/21 08:00 BP 167/83 09/12/21 08:00 Pulse Ox 91 L 09/12/21 08:00 Intake & Output 09/11/21 09/12/21 09/12/21 18:59 06:59 18:59 Output Total 610 70 1 Balance -610 -70 -1 Output: Drainage 100 70 Right Hip 100 70 Urine 510 Uretheral (Marie) 110 Stool 1 Other: Voiding Method Indwelling Catheter # Voids 2 2 1 - Exam In general patient is alert and oriented x 3 in no distress HEENT head normocephalic and atraumatic Neck is supple no JVD no goiter no lymphadenopathy no carotid bruit Chest examination is clear to auscultation no crackles no wheezing Cardiac exam reveals regular heart sounds S1 and S2 no gallops no murmurs Abdomen is soft nontender no organomegaly with normal bowel sounds Extremity exam reveals no edema no cyanosis or clubbing Neurological examination reveals no gross focal deficits - Labs CBC & Chem 7: 09/11/21 08:08 09/12/21 06:19 Labs: Abnormal Lab Results - Last 24 Hours (Table) 09/11/21 09/11/21 09/12/21 Range/Units 08:07 08:08 06:19 RBC 3.43 L (4.10-5.20) X 10*6/uL Hgb 10.5 L (12.0-15.0) g/dL Hct 30.5 L (37.2-46.3) % MPV 8.9 L (9.5-12.2) fL Eosinophils # 0 L (0.04-0.35) X 10*3/uL Sodium 126 L (135-145) mmol/L Chloride 95 L (96-109) mmol/L Creatinine 0.5 L 0.4 L (0.6-1.5) mg/dL BUN/Creatinine Ratio 22.86 H 24.32 H (12.00-20.00) Ratio Glucose 131 H (70-110) mg/dL Calcium 8.6 L (8.7-10.3) mg/dL Total Protein 5.1 L 5.1 L (6.2-8.2) g/dL Albumin 3.1 L 3.0 L (3.8-4.9) g/dL Albumin/Globulin Ratio 1.46 L 1.39 L (1.60-3.17) g/dL Assessment and Plan Plan: Fall with right hip fracture. S/p right hip arthroplasty on 09/10/2021 Underlying history of hypertension maintained on multiple blood pressure medications Evidence of hyponatremia on presentation, hydrochlorothiazide was discontinued and patient was started on normal saline IV fluid Cardiac-banks there is no history of cardiac disease , patient had an echocardiogram in December 2019 which was essentially normal . EKG was done yesterday and reviewed and reveals normal sinus rhythm normal EKG Urine analysis done and there is no convincing evidence of urinary tract infection Underlying history of depression with anxiety disorder At this time patient is admitted to medical floor Continue normal saline and monitor electrolytes closely Home medications reviewed and reordered, will monitor blood pressure closely and use IV hydralazine if necessary. Will follow during this admission
[2021-09-12 11:01] LABS: Appearance,Urine Clear (Clear); Bilirubin,Urine Negative (Negative); Blood,Urine Negative (Negative); Color,Urine Yellow; Glucose,Urine (UA) Negative (Negative); Ketones,Urine Negative (Negative); Leukocyte Esterase,Urine Negative (Negative); Nitrite,Urine Negative (Negative); Protein,Urine Negative (Negative); Specific Gravity,Urine 1.011 (1.001-1.035); Urobilinogen,Urine <2.0 mg/dL (<2.0)
[2021-09-12] MEDS: amLODIPine 5 MG TAB PO SCH (13:08)
[2021-09-12 19:18] LABS: Basophils % (A) 0 %; Eosinophils # (A) 0.1 k/uL (0-0.7); Eosinophils % (A) 1 %; HCT 31.5 % (34.0-46.0); Lymphocytes # (A) 1.4 k/uL (1.0-4.8); Lymphocytes % (A) 22 %; MCHC 34.8 g/dL (31.0-37.0); MCV 91.8 fL (80.0-100.0); Mean Platelet Volume 6.5; Monocytes # (A) 0.7 k/uL (0-1.0); Monocytes % (A) 11 %; Neutrophils # (A) 3.9 k/uL (1.3-7.7); Neutrophils % (A) 63 %; Platelet Count 234 k/uL (150-450); RBC 3.43 m/uL (3.80-5.40); RDW 13.1 % (11.5-15.5); WBC 6.2 k/uL (3.8-10.6)
[2021-09-12] MEDS: SODIUM CHLORIDE 0.9% 1,000 ML IV SCH (20:32)
[2021-09-12] MEDS: LATANOPROST 0.005% OPHTH DROPS 2.5 ML BTL BOTH EYES SCH (20:33)
[2021-09-12] MEDS: SENNOSIDES-DOCUSATE SODIUM 1 EACH TAB PO SCH (20:33)
[2021-09-12] MEDS: traZODone HCL 50 MG TAB PO SCH (20:33)
[2021-09-13] MEDS: LACTATED RINGERS 1,000 ML IV SCH ×3 (00:52→09:45)
[2021-09-13] MEDS: SODIUM CHLORIDE 0.9% 1,000 ML IV SCH (03:03)
[2021-09-13] MEDS: ACETAMINOPHEN TAB 325 MG TAB PO PRN ×2 (04:06→10:37)
[2021-09-13 08:02] VITALS: RESP 18
[2021-09-13] MEDS ORDERED: ERGOCALCIFEROL 1,250 MCG (50,000 IU) CAPSULE PO SCH (09:00)
[2021-09-13] MEDS: VIT A,C & E-LUTEIN-MINERALS 1 EACH TAB PO SCH (09:21)
[2021-09-13] MEDS: DORZOLAMIDE-TIMOLOL 2.23%/0.68 10ML BTL BOTH EYES SCH (09:22)
[2021-09-13] MEDS: lisinopriL 20 MG TAB PO SCH (09:22)
[2021-09-13] MEDS: carvediloL 12.5 MG TAB PO SCH (09:22)
[2021-09-13] MEDS: ESCITALOPRAM 10 MG TAB PO SCH (09:22)
[2021-09-13] MEDS: ASPIRIN 81 MG PO SCH (09:22)
[2021-09-13 11:03] LABS: African American GFR (CKD) 102.8 (60.0-200.0); Albumin 3.2 g/dL (3.8-4.9); Albumin/Globulin Ratio 1.42 (1.60-3.17); Anion Gap 9.5 mmol/L (4.00-12.00); BUN/Creat Ratio 16.64 Ratio (12.00-20.00); Blood Urea Nitrogen 8.9 mg/dL (9.0-27.0); Carbon Dioxide 23.7 mmol/L (21.6-31.8); Globulin 2.2 g/dL (1.6-3.3); Non-African American GFR(CKD) 88.7 (60.0-200.0); Potassium 4.3 mmol/L (3.5-5.5); Total Bilirubin 0.5 mg/dL (0.30-1.20); Total Protein 5.4 g/dL (6.2-8.2)
[2021-09-13 11:09] LABS: Basophils # (A) 0.01 X 10*3/uL (0.00-0.10); Basophils % (A) 0.2 %; Eosinophils # (A) 0.02 X 10*3/uL (0.04-0.35); Eosinophils % (A) 0.4 %; Lymphocytes % (A) 22.9 %; MCHC 33.3 g/dL (32.0-37.0); Mean Platelet Volume 8.8 fL (9.5-12.2); Monocytes % (A) 11.5 %; Neutrophils # (A) 3.38 X 10*3/uL (1.80-7.70); Neutrophils % (A) 64.6 %; Platelet Count 223 X 10*3/uL (140-440); RBC 3.55 X 10*6/uL (4.10-5.20); RDW 12.7 % (11.5-14.5); WBC 5.23 X 10*3/uL (4.50-10.00)
--- NOTE | 2021-09-13 11:51 | P.DS ---
Providers Date of admission: 09/08/21 14:48 Expected date of discharge: 09/13/21 Attending physician: William Joshi Consults: 09/08/21 14:49 Consult Physician Routine Consulting Provider: Bhanu Vicente Consult Reason/Comments: medical consult Do you want consulting provider notified?: Yes Primary care physician: Bhanu Vicente - Discharge Diagnosis(es) (1) History of right hip hemiarthroplasty Current Visit: Yes Status: Acute (2) Hip pain, right Current Visit: Yes Status: Acute (3) Status post fall Current Visit: Yes Status: Acute (4) Fracture of femoral neck, right Current Visit: Yes Status: Acute (5) Hypertension Current Visit: Yes Status: Acute (6) Hyponatremia Current Visit: Yes Status: Acute Hospital Course: This is a pleasant 81-year-old female who presented with right hip femoral neck fracture status post fall with inability to ambulate on the hip due to fracture and right hip pain. She was admitted for further treatment and evaluation. She underwent a right hip hemiarthroplasty performed by Dr. Adamson on 09/10/2021. Postoperatively she has had significant improvement of her symptoms overall. She feels her right hip pain is well-controlled. She has been able to ambulate some in the room with the assistance of a walker and physical therapy. She is not taking any narcotic pain medication for pain control. Patient feels she could be discharged today. Patient's family is in the room with her. They're planning for discharge home with home health services. Case management is also in the room to help facilitate preparations for home discharge. Patient denies any other pains currently. She has no other complaints. Her pain has been well-controlled. The patient tolerated the procedure well and did well postoperatively. Condition on day of discharge stable. Patient will be discharged home with home health services. Patient was cleared preoperatively for surgery by Dr. Vicente. Patient currently denies any nausea, vomiting, fever, or chills. Patient is eating and voiding freely without difficulty. Patient may shower Optifoam dressing intact. Patient may remove Optifoam dressing in 7-10 days and shower without a dressing at that time. She may weight-bear as tolerated on the right lower extremity with the assistance of a walker. She is encouraged to use a walker to aid in ambulation. She will be transferred at the time of discharge by [facility]. Patient will continue with aspirin 81 mg twice a day for anticoagulation postoperatively. She is given a prescription for aspirin 81 mg 1 tab twice a day, dispensed #60. She should take this prescription until completion. Patient is also given a prescription for acetaminophen 650 mg tab 1 tab every 6 hours as needed for pain, dispensed #60. Prescriptions have been sent to the [facility] pharmacy located within [facility] per request. Patient's other medical diagnoses include hypertension and hyponatremia. Patient must be cleared by medicine prior to discharge. Physical Exam on day of discharge: Status post surgical day number 3 Patient is examined sitting upright at the bedside Patient is awake, alert, and oriented 3 Vital signs stable Good chest excursion with deep inspiration and expiration No signs or symptoms of DVT; no calf pain Lower extremity cuffs not currently in place bilaterally Dressing of the right hip is clean, dry, and intact; no erythema, purulence, or signs of infection No significant pain with palpation over the surgical site Drain has been removed at the right hip Full range of motion of ankles bilaterally Dorsiflexion, plantarflexion, and extensor hallucis longus positive sustained bilaterally Neurovascularly intact bilateral lower extremities Good active range of motion of bilateral upper extremities without increased pain or difficulty Procedures: Right hip hemiarthroplasty Patient Condition at Discharge: Stable Plan - Discharge Summary Discharge Rx Participant: Yes New Discharge Prescriptions: New Acetaminophen [Acetaminophen ER] 650 mg PO Q6HR PRN #60 tab PRN Reason: Pain Aspirin 81 mg PO BID #60 tab No Action Latanoprost [Xalatan 0.005%] 1 drop BOTH EYES HS traZODone HCL 50 mg PO HS Escitalopram [Lexapro] 10 mg PO DAILY Ergocalciferol [Vitamin D2] 50,000 unit PO MO lisinopriL [Zestril] 20 mg PO BID Eye Vitamin 1 tab PO DAILY hydroCHLOROthiazide [Hydrodiuril] 25 mg PO DAILY Dorzolamide-Timol 2.23%/0.68% [Cosopt] 1 drop BOTH EYES BID Carvedilol [Coreg] 25 mg PO BID amLODIPine BESYLATE [Norvasc] 2.5 mg PO DAILY@1200 Discharge Medication List Latanoprost [Xalatan 0.005%] 1 drop BOTH EYES HS 12/07/18 [History] Ergocalciferol [Vitamin D2] 50,000 unit PO MO 08/02/19 [History] Escitalopram [Lexapro] 10 mg PO DAILY 08/02/19 [History] Eye Vitamin 1 tab PO DAILY 08/02/19 [History] lisinopriL [Zestril] 20 mg PO BID 08/02/19 [History] traZODone HCL 50 mg PO HS 08/02/19 [History] Carvedilol [Coreg] 25 mg PO BID 09/08/21 [History] Dorzolamide-Timol 2.23%/0.68% [Cosopt] 1 drop BOTH EYES BID 09/08/21 [History] amLODIPine BESYLATE [Norvasc] 2.5 mg PO DAILY@1200 09/08/21 [History] hydroCHLOROthiazide [Hydrodiuril] 25 mg PO DAILY 09/08/21 [History] Acetaminophen [Acetaminophen ER] 650 mg PO Q6HR PRN #60 tab 09/13/21 [Rx] Aspirin 81 mg PO BID #60 tab 09/13/21 [Rx] Follow up Appointment(s)/Referral(s): Rossy Schwartz [NON-STAFF] - ([facility] will call you to schedule the home care nursing and physical therapy visits on 09/14/21.) Bhanu Vicente MD [Primary Care Provider] - 1-2 days Francisco Adamson MD [Medical Doctor] - 2 Weeks (Patient may follow-up with Dr. Shaggy Adamson at [facility] in 2-3 weeks following discharge. ) Activity/Diet/Wound Care/Special Instructions: *Please call [facility] [phone] to set up w/c van to daughter's [address] at [address] [place] [address]. 1. Weight-bear as tolerated on the right lower extremity 2. Ambulatory tolerance with assistance of a walker 3. Keep optifoam dressing intact over the right hip for 7-10 days 4. Take medications as prescribed 5. Patient may shower with dressing intact over the right hip Discharge Disposition: HOME WITH HOME HEALTH SERVICES
[2021-09-13] MEDS: amLODIPine 5 MG TAB PO SCH (12:28)
--- NOTE | 2021-09-13 13:13 | P.PN ---
Subjective Progress Note Date: 09/13/21 Cheryl Lilly, is an 81-year-old female who presented to [facility] emergency room with a chief complaint of fall with right hip pain, patient states that she has a large dog and he jumped on her back and she fell down on her right hip she was unable to stand up and was having significant pain in the right hip she was brought to emergency room and was evaluated by Dr. Pelaez x-ray of the right hip revealed evidence of impacted and mildly displaced supple M right femoral neck fracture, patient was admitted and an orthopedic surgery, medical consultation was requested for clearance for surgery and medical management while hospitalized. On arrival to emergency room patient had vital examination that revealed a temperature of 98 pulse 64 respiration 18 blood pressure 168/80 pulse ox 94% on room air Laboratory data revealed a white blood count of 5.3 hemoglobin 13.2 platelet count 268 INR 1.0 sodium 126 potassium 4.0 chloride 92 CO2 27 BUN 12 creatinine 0.49 Diaz virus PCR was negative. Patient is well known to my practice she has a known history of hypertension, depression with anxiety disorder, gastroesophageal reflux disease, osteoarthritis, history of colon polyps and diverticulosis. On review of systems patient is complaining of pain in her right hip otherwise she denies any complaints there is no fever or chills no headache or dizziness no chest pain no shortness of breath no cough no nausea or vomiting no abdominal pain no diarrhea no blood in the stools no burning with urination no frequency or urgency and no hematuria. On 09/10/2021 patient is resting comfortably in bed. Still awaiting surgical intervention due to unavailability of OR yesterday. Patient having intermittent confusion after receiving morphine currently improved. Sodium improving to 132. Family is at bedside all questions answered. She denies chest pain or shortness of breath. Patient denies nausea vomiting or diarrhea. Patient denies any urinary burning or frequency. Tentative plans for surgical intervention today On 09/11/2021 patient was seen and examined on the medical floor she is alert and oriented 3 in no apparent distress her pain is well controlled at this time there is no fever or chills no headache or dizziness no chest pain no shortness of breath no cough no nausea or vomiting no abdominal pain no diarrhea no blood in the stools no burning with urination no frequency or urgency and no hematuria, patient underwent right anterior hip hemiarthroplasty yesterday, for DVT prophylaxis she is maintained on aspirin twice a day and SCD stockings on 09/12/2021 patient is alert and oriented resting in bed. Daughter at bedside. currently POD #2 per nursing staff patient having frequent urination. will check u/A. Denies chest pain or shortness or breath. Denies any nausea vomiting or diarrhea. surgical site clean dry and intact. drain in place. sodium 132 On 09/13/2021 patient was seen and examined on the medical floor she is alert and oriented 3 in no apparent distress there is no fever or chills no headache or dizziness no chest pain no shortness of breath no cough no nausea or vomiting no abdominal pain no diarrhea no blood in the stools no burning with urination no frequency or urgency and no hematuria. Patient was cleared for discharge [facility] by orthopedic surgery. Medically during this admission, hydrochlorothiazide was discontinued due to hyponatremia, Norvasc 2.5 was increased to 5 mg daily, urine analysis is clear no evidence of infection, patient can be discharged home, will follow as outpatient, visiting nurse visiting physical therapy will follow at home Objective - Vital Signs Vital signs: Vital Signs Temp 97.4 F L 09/13/21 08:00 Pulse 74 09/13/21 08:00 Resp 18 09/13/21 08:00 BP 160/78 09/13/21 08:00 Pulse Ox 96 09/13/21 08:00 Intake & Output 09/12/21 09/13/21 09/13/21 18:59 06:59 18:59 Output Total 1 Balance -1 Output: Stool 1 Other: Voiding Method Bedside Commode Bedside Commode Bedside Commode # Voids 2 1 - Exam In general patient is alert and oriented x 3 in no distress HEENT head normocephalic and atraumatic Neck is supple no JVD no goiter no lymphadenopathy no carotid bruit Chest examination is clear to auscultation no crackles no wheezing Cardiac exam reveals regular heart sounds S1 and S2 no gallops no murmurs Abdomen is soft nontender no organomegaly with normal bowel sounds Extremity exam reveals no edema no cyanosis or clubbing Neurological examination reveals no gross focal deficits - Labs CBC & Chem 7: 09/13/21 07:27 09/13/21 07:27 Labs: Abnormal Lab Results - Last 24 Hours (Table) 09/12/21 09/13/21 09/13/21 Range/Units 19:00 07:27 07:27 RBC 3.43 L 3.55 L (3.80-5.40) m/uL Hgb 11.0 L 11.0 L (11.4-16.0) gm/dL Hct 31.5 L 33.0 L (34.0-46.0) % MPV 8.8 L (9.5-12.2) fL Eosinophils # 0.02 L (0.04-0.35) X 10*3/uL Sodium 133 L (135-145) mmol/L BUN 8.9 L (9.0-27.0) mg/dL Creatinine 0.5 L (0.6-1.5) mg/dL Glucose 141 H (70-110) mg/dL Total Protein 5.4 L (6.2-8.2) g/dL Albumin 3.2 L (3.8-4.9) g/dL Albumin/Globulin Ratio 1.42 L (1.60-3.17) g/dL Assessment and Plan Plan: Fall with right hip fracture. S/p right hip arthroplasty on 09/10/2021 Underlying history of hypertension maintained on multiple blood pressure medications Evidence of hyponatremia on presentation, hydrochlorothiazide was discontinued and patient was started on normal saline IV fluid Cardiac-banks there is no history of cardiac disease , patient had an echocardiogram in December 2019 which was essentially normal . EKG was done yesterday and reviewed and reveals normal sinus rhythm normal EKG Urine analysis done and there is no convincing evidence of urinary tract infection Underlying history of depression with anxiety disorder At this time patient is admitted to medical floor Continue normal saline and monitor electrolytes closely Home medications reviewed and reordered, will monitor blood pressure closely and use IV hydralazine if necessary. Will follow during this admission
[2021-09-13 14:18] VITALS: PULSE 83
[2021-09-13 14:33] VITALS: BP 125/72; TEMP 97.7
== END 2021-09-13 15:58 | disposition home health service (06) | DRG 522 ==
LOC: EC 13:13 → 4SSUR 14:48
PROVIDERS: ADMIT Orthopaedic Surgery Orthopaedic Surgery of the Spine; ATTEND Orthopaedic Surgery Orthopaedic Surgery of the Spine
PROC: 0SRR0J9 Replacement of Right Hip Joint, Femoral Surface with Synthetic Substitute, Cemented, Open Approach (ICD-10-PCS; principal; 2021-09-10 10:25)
DX: S72.011A Unspecified intracapsular fracture of right femur, initial encounter for closed fracture (principal); E87.1 Hypo-osmolality and hyponatremia; W18.30XA Fall on same level, unspecified, initial encounter; W54.1XXA Struck by dog, initial encounter; F32.A Depression, unspecified; F41.9 Anxiety disorder, unspecified; K57.90 Diverticulosis of intestine, part unspecified, without perforation or abscess without bleeding; I10 Essential (primary) hypertension; K21.9 Gastro-esophageal reflux disease without esophagitis; M25.511 Pain in right shoulder; M54.30 Sciatica, unspecified side; M81.0 Age-related osteoporosis without current pathological fracture; H40.9 Unspecified glaucoma; Z20.822 Contact with and (suspected) exposure to COVID-19; Z79.82 Long term (current) use of aspirin; Z82.49 Family history of ischemic heart disease and other diseases of the circulatory system; Z79.899 Other long term (current) drug therapy; Z80.0 Family history of malignant neoplasm of digestive organs; Z90.49 Acquired absence of other specified parts of digestive tract; Z80.6 Family history of leukemia; Z82.3 Family history of stroke; Z83.49 Family history of other endocrine, nutritional and metabolic diseases; Z86.010 Personal history of colon polyps; Z88.5 Allergy status to narcotic agent; Z90.710 Acquired absence of both cervix and uterus
CPT/HCPCS: 36415; 70450; 71045; 72125; 73501; 73502; 80048; 80053; 81001; 81003; 85025; 85610; 85730; 86850; 86900; 86901; 87635; 88305; 88311; 93005; 99285

== ENCOUNTER → 2021-10-21 | Outpatient (CLI) | payer MEDICARE, BC ==
--- NOTE | 2021-10-21 14:09 | US ---
EXAMINATION TYPE: US venous doppler duplex LE LT DATE OF EXAM: 10/21/2021 1:15 PM COMPARISON: NONE CLINICAL HISTORY: 81-year-old female I80.9 Phlebitis. Left leg swelling SIDE PERFORMED: Left TECHNIQUE: The lower extremity deep venous system is examined utilizing real time linear array sonog teddy with graded compression, doppler sonography and color-flow sonography. FINDINGS: VESSELS IMAGED: Common Femoral Vein Deep Femoral Vein Greater Saphenous Vein * Femoral Vein Popliteal Vein Small Saphenous Vein * Proximal Calf Veins (* superficial vessels) Left Leg: Appears negative for DVT IMPRESSION: No evidence for DVT within the left lower extremity imaged from the groin to the upper calf.
== END | disposition home or self-care (01) ==
LOC: RADUSWWP 12:47
PROVIDERS: ATTEND Orthopaedic Surgery
DX: S72.041D Displaced fracture of base of neck of right femur, subsequent encounter for closed fracture with routine healing (principal); I80.9 Phlebitis and thrombophlebitis of unspecified site; M79.89 Other specified soft tissue disorders; Z47.1 Aftercare following joint replacement surgery; Z96.641 Presence of right artificial hip joint; X58.XXXD Exposure to other specified factors, subsequent encounter

== ENCOUNTER 2022-08-01 00:40 | Emergency (ER) | payer MEDICARE, BC ==
[2022-08-01] MEDS ORDERED: SODIUM CHLORIDE 0.9% 500 ML 500 ML IV STA (00:56)
[2022-08-01] MEDS ORDERED: DEXAMETHASONE SOD PHOSPHATE 10 MG/ML 1 ML VIAL IVP STA (00:56)
[2022-08-01] MEDS ORDERED: ACETAMINOPHEN TAB 500 MG TAB PO STA (00:56)
[2022-08-01] MEDS ORDERED: KETOROLAC 15 MG/ML 1 ML VIAL IVP STA (00:56)
--- NOTE | 2022-08-01 00:57 | ED ---
URI HPI - General Stated Complaint: PEYTON, weakness, covid exposure Time Seen by Provider: 08/01/22 00:56 Source: RN notes reviewed, old records reviewed, Caregiver Limitations: no limitations - History of Present Illness Initial Comments: This is an 80-year-old female to the emergency department for evaluation she presents today for evaluation regards to coronavirus exposure, patient has cough and URI symptoms with exposure to COVID MD Complaint: cough, sore throat -: hour(s) Severity: moderate Severity scale (1-10): 4 Quality: crushing, aching Consistency: intermittent Improves With: nothing Worsens With: nothing Context: sick contacts (COVID) Associated Symptoms: chills, myalgias, sore throat, cough, nausea Treatments Prior to Arrival: none - Related Data Home Medications Medication Instructions Recorded Confirmed Latanoprost [Xalatan 0.005%] 1 drop BOTH EYES HS 12/07/18 09/08/21 Ergocalciferol [Vitamin D2] 50,000 unit PO MO 08/02/19 09/08/21 Escitalopram [Lexapro] 10 mg PO DAILY 08/02/19 09/08/21 Eye Vitamin 1 tab PO DAILY 08/02/19 09/08/21 lisinopriL [Zestril] 20 mg PO BID 08/02/19 09/08/21 traZODone HCL 50 mg PO HS 08/02/19 09/08/21 Dorzolamide-Timol 2.23%/0.68% 1 drop BOTH EYES BID 09/08/21 09/08/21 [Cosopt] amLODIPine BESYLATE [Norvasc] 5 mg PO DAILY@1200 09/08/21 09/13/21 carvediloL [Coreg] 25 mg PO BID 09/08/21 09/08/21 Previous Rx's Medication Instructions Recorded Acetaminophen [Acetaminophen ER] 650 mg PO Q6HR PRN #60 tab 09/13/21 Aspirin 81 mg PO BID #60 tab 09/13/21 Allergies Allergy/AdvReac Type Severity Reaction Status Date / Time codeine AdvReac Nausea & Verified 08/01/22 01:05 Vomiting Review of Systems ROS Statement: Those systems with pertinent positive or pertinent negative responses have been documented in the HPI. ROS Other: All systems not noted in ROS Statement are negative. Past Medical History Past Medical History: Eye Disorder, GI Bleed, Hypertension Additional Past Medical History / Comment(s): back pain, sciatica, endometreosis(had hysterectomy), diverticulitis/colits, benign polyp removed, glaucoma(not on drops), osteoporosis. Current problems with diverticulitits and blood in stool. History of Any Multi-Drug Resistant Organisms: None Reported Past Surgical History: Appendectomy, Hysterectomy Additional Past Surgical History / Comment(s): colonoscopy/polypectomy Past Anesthesia/Blood Transfusion Reactions: No Reported Reaction Past Psychological History: Anxiety, Depression Additional Psychological History / Comment(s): Patient has own property - has been staying with her family more frequently. Smoking Status: Never smoker Past Alcohol Use History: None Reported Past Drug Use History: None Reported - Past Family History Father Family Medical History: Cancer, Myocardial Infarction ([place]) Additional Family Medical History / Comment(s): leukemia Mother Family Medical History: Cancer, CVA/TIA, Hypertension, Myocardial Infarction ([place]), Thyroid Disorder Additional Family Medical History / Comment(s): colon cancer, lived to be 99 Sister(s) Family Medical History: Cancer General Exam General appearance: alert, in no apparent distress Head exam: Present: atraumatic, normocephalic, normal inspection Eye exam: Present: normal appearance, PERRL, EOMI. Absent: scleral icterus, conjunctival injection, periorbital swelling ENT exam: Present: normal exam, mucous membranes dry, mucous membranes moist Neck exam: Present: normal inspection. Absent: tenderness, meningismus, lymphadenopathy Respiratory exam: Present: normal lung sounds bilaterally. Absent: respiratory distress, wheezes, rales, rhonchi, stridor Cardiovascular Exam: Present: regular rate, normal rhythm, normal heart sounds. Absent: systolic murmur, diastolic murmur, rubs, gallop, clicks GI/Abdominal exam: Present: soft, normal bowel sounds. Absent: distended, tenderness, guarding, rebound, rigid Extremities exam: Present: normal inspection, full ROM, normal capillary refill. Absent: tenderness, pedal edema, joint swelling, calf tenderness Back exam: Present: normal inspection Neurological exam: Present: alert, oriented X3, CN II-XII intact Psychiatric exam: Present: normal affect, normal mood Skin exam: Present: warm, dry, intact, normal color. Absent: rash Course Vital Signs 08/01/22 01:01 Temperature 99.3 F Pulse Rate 80 Respiratory 19 Rate Blood Pressure 157/90 O2 Sat by Pulse 98 Oximetry - Reevaluation(s) Reevaluation #1: 08/01/22 02:07 Attic record is reviewed Reevaluation #2: 08/01/22 02:07 Patient refusing further blood testing Reevaluation #3: 08/01/22 02:07 patient family informed results questions answered, prefer discharged Medical Decision Making - Medical Decision Making 82 female to the emergency department for evaluation patient presents with cough and congestion covert exposure positive for coronavirus here in the ER. Patient is otherwise asymptomatic x-rays negative and can be discharged home - Lab Data Lab Results 08/01/22 Range/Units 01:30 Coronavirus (PCR) Detected A (Not Detectd) - EKG Data -: EKG Interpreted by Me (EKG is sinus rhythm 80 NE 170 QRS 81 QTC 374) - Radiology Data Radiology results: report reviewed (Chest x-rays negative for acute disease), image reviewed Disposition Clinical Impression: Coronavirus infection Disposition: HOME SELF-CARE Condition: Good Instructions (If sedation given, give patient instructions): Coronavirus Disease 2019 (COVID-19) Is patient prescribed a controlled substance at d/c from ED?: No Referrals: Bhanu Vicente MD [Primary Care Provider] - 1-2 days Time of Disposition: 02:05
[2022-08-01] MEDS ORDERED: SODIUM CHLORIDE 0.9% 1,000 ML IV SCH (01:00)
[2022-08-01 01:03] VITALS: BP 157/90; PULSE 80; RESP 19; TEMP 99.3
--- NOTE | 2022-08-01 01:21 | XR ---
EXAMINATION TYPE: XR chest 1V portable DATE OF EXAM: 07/31/2022 COMPARISON: NONE HISTORY: Cough TECHNIQUE: Single view FINDINGS: Heart is normal. Lungs are clear of consolidation. There are small linear density in the le ft lower lobe. There are no hilar masses. The bony thorax is intact. IMPRESSION: Subsegmental atelectasis left lower lobe. Normal heart.
== END 2022-08-01 02:37 | disposition home or self-care (01) ==
LOC: EC 00:40
DX: U07.1 COVID-19 (principal); Z88.5 Allergy status to narcotic agent; I10 Essential (primary) hypertension; Z79.899 Other long term (current) drug therapy
CPT/HCPCS: 71045; 87635; 99285

== ENCOUNTER 2024-05-18 09:37 | Emergency (ER) | payer MEDICARE, BC ==
--- NOTE | 2024-05-18 10:19 | ED ---
General Adult HPI - General Chief complaint: Abdominal Pain Stated complaint: Abd pain Time Seen by Provider: 05/18/24 09:47 Source: patient, family, RN notes reviewed Mode of arrival: ambulatory Limitations: no limitations - History of Present Illness Initial comments: Patient is an 83-year-old female present to the emergency department with concerns for abdominal discomfort. Daughter is present and provides majority of history. Onset of symptoms was around 3 to 4 days ago. Patient has had some nausea and dry heaves in the morning. Patient has discomfort mostly right flank. No urinary symptoms. No fevers. - Related Data Home Medications Medication Instructions Recorded Confirmed Latanoprost [Xalatan 0.005%] 1 drop BOTH EYES HS 12/07/18 09/08/21 Ergocalciferol [Vitamin D2] 50,000 unit PO MO 08/02/19 09/08/21 Escitalopram [Lexapro] 10 mg PO DAILY 08/02/19 09/08/21 Eye Vitamin 1 tab PO DAILY 08/02/19 09/08/21 lisinopriL [Zestril] 20 mg PO BID 08/02/19 09/08/21 traZODone HCL 50 mg PO HS 08/02/19 09/08/21 Dorzolamide-Timol 2.23%/0.68% 1 drop BOTH EYES BID 09/08/21 09/08/21 [Cosopt] amLODIPine BESYLATE [Norvasc] 5 mg PO DAILY@1200 09/08/21 09/13/21 carvediloL [Coreg] 25 mg PO BID 09/08/21 09/08/21 Previous Rx's Medication Instructions Recorded Acetaminophen [Acetaminophen ER] 650 mg PO Q6HR PRN #60 tab 09/13/21 Aspirin 81 mg PO BID #60 tab 09/13/21 Allergies Allergy/AdvReac Type Severity Reaction Status Date / Time morphine Allergy Hallucinati Verified 05/18/24 09:43 ons codeine AdvReac Nausea & Verified 08/01/22 01:05 Vomiting Review of Systems ROS Statement: Those systems with pertinent positive or pertinent negative responses have been documented in the HPI. ROS Other: All systems not noted in ROS Statement are negative. Constitutional: Denies: fever Eyes: Denies: eye pain ENT: Denies: ear pain Respiratory: Denies: dyspnea Cardiovascular: Denies: chest pain Gastrointestinal: Reports: as per HPI Past Medical History Past Medical History: Eye Disorder, GI Bleed, Hypertension Additional Past Medical History / Comment(s): back pain, sciatica, endometreosis(had hysterectomy), diverticulitis/colits, benign polyp removed, glaucoma(not on drops), osteoporosis. Current problems with diverticulitits and blood in stool. memory difficulty. diverticulitis History of Any Multi-Drug Resistant Organisms: None Reported Past Surgical History: Appendectomy, Hysterectomy Additional Past Surgical History / Comment(s): colonoscopy/polypectomy Past Anesthesia/Blood Transfusion Reactions: No Reported Reaction Past Psychological History: Anxiety, Depression Smoking Status: Never smoker Past Alcohol Use History: None Reported Past Drug Use History: None Reported - Past Family History Father Family Medical History: Cancer, Myocardial Infarction ([place]) Additional Family Medical History / Comment(s): leukemia Mother Family Medical History: Cancer, CVA/TIA, Hypertension, Myocardial Infarction ([place]), Thyroid Disorder Additional Family Medical History / Comment(s): colon cancer, lived to be 99 Sister(s) Family Medical History: Cancer General Exam Limitations: no limitations General appearance: alert, in no apparent distress Head exam: Present: normocephalic Eye exam: Present: normal appearance Neck exam: Present: normal inspection Respiratory exam: Present: normal lung sounds bilaterally Cardiovascular Exam: Present: regular rate, normal rhythm Expanded Peripheral pulses: 2+: Posterior Tibialis (R), Posterior Tibialis (L) GI/Abdominal exam: Present: soft, tenderness (Mild tenderness right flank), normal bowel sounds. Absent: distended, guarding, rebound, rigid, pulsatile mass Extremities exam: Present: normal inspection Back exam: Present: CVA tenderness (R) (Minimal tenderness right flank posterior and just below the right CVA) Neurological exam: Present: alert Psychiatric exam: Present: normal affect, normal mood Skin exam: Present: normal color Course Vital Signs 05/18/24 05/18/24 05/18/24 09:39 10:34 12:21 Temperature 97.7 F Pulse Rate 65 60 60 Respiratory 16 18 18 Rate Blood Pressure 136/77 151/86 149/85 O2 Sat by Pulse 98 96 97 Oximetry 05/18/24 12:44 Temperature 98.1 F Pulse Rate Respiratory Rate Blood Pressure O2 Sat by Pulse Oximetry EKG Findings - EKG Results: EKG: interpreted by ERMD, sinus rhythm, normal axis, normal QRS, normal ST/T EKG shows: bradycardia Medical Decision Making - Medical Decision Making Was pt. sent in by a medical professional or institution ([facility]STINO Kaur, [employer], urgent care, hospital, or half-way...) When possible be specific @ -No Did you speak to anyone other than the patient for history (EMS, parent, family, police, friend...)? What history was obtained from this source @ -Daughter is present and helps provide history as she is qa analyst Did you review nursing and triage notes (agree or disagree)? Why? @ -I reviewed and agree with nursing and triage notes Were old charts reviewed (outside hosp., previous admission, EMS record, old EKG, old radiological studies, urgent care reports/EKG's, half-way records)? Report findings @ -No old charts were reviewed Differential Diagnosis (chest pain, altered mental status, abdominal pain women, abdominal pain men, vaginal bleeding, weakness, fever, dyspnea, syncope, headache, dizziness, GI bleed, back pain, seizure, CVA, palpatations, mental health, musculoskeletal)? @ -Differential Abdominal Pain Women: Appendicitis, Cholecystitis, diverticulosis, ischemic bowel, pancreatitis, hepatitis, UTI, gastroenteritis, AAA, incarcerated hernia, bowel obstruction, constipation, inflammatory bowel, hepatitis, peptic ulcer disease, splenic infarction, perforated viscus, vulvitis, ovarian torsion, PID, kidney stone, placenta abruption, this is not meant to be an all-inclusive list EKG interpreted by me (3pts min.). @ -As above X-rays interpreted by me (1pt min.). @ -None done CT interpreted by me (1pt min.). @ -CT abdomen pelvis does not reveal acute abnormality U/S interpreted by me (1pt. min.). @ -None done What testing was considered but not performed or refused? (CT, X-rays, U/S, l abs)? Why? @ -None What meds were considered but not given or refused? Why? @ -None Did you discuss the management of the patient with other professionals (professionals i.e. CELESTINO Kaur, [employer], lab, RT, psych nurse, social media marketing specialist, rn procedure, teacher, disability insurance hearing officer, trimming caser)? Give summary @ -No Was smoking cessation discussed for >3mins.? @ -No Was critical care preformed (if so, how long)? @ -No Were there social determinants of health that impacted care today? How? (Homelessness, low income, unemployed, alcoholism, drug addiction, transportation, low edu. Level, literacy, decrease access to med. care, half-way, rehab)? @ -No Was there de-escalation of care discussed even if they declined (Discuss DNR or withdrawal of care, Hospice)? DNR status @ -No What co-morbidities impacted this encounter? (DM, HTN, Smoking, COPD, CAD, Cancer, CVA, ARF, Chemo, Hep., AIDS, mental health diagnosis, sleep apnea, morbid obesity)? @ -None Was patient admitted / discharged? Hospital course, mention meds given and route, prescriptions, significant lab abnormalities, going to OR and other pertinent info. @ -Patient reevaluated and symptom-free resting comfortably in bed. Patient states she feels much better and request discharge home. Patient and family are updated on results and need for follow-up. Undiagnosed new problem with uncertain prognosis? @ -No Drug Therapy requiring intensive monitoring for toxicity (Heparin, Nitro, Insulin, Cardizem)? @ -No Were any procedures done? @ -No Diagnosis/symptom? @ -Abdominal pain Acute, or Chronic, or Acute on Chronic? @ -Acute Uncomplicated (without systemic symptoms) or Complicated (systemic symptoms)? @ -Default Side effects of treatment? @ -No Exacerbation, Progression, or Severe Exacerbation? @ -No Poses a threat to life or bodily function? How? (Chest pain, [place], [place], pneumonia, PE, COPD, DKA, ARF, appy, cholecystitis, CVA, Diverticulitis, Homicidal, Suicidal, threat to staff... and all critical care pts) @ -No - Lab Data Result diagrams: 05/18/24 10:22 05/18/24 10:22 Lab Results 05/18/24 05/18/24 05/18/24 Range/Units 10:22 10:22 10:22 WBC 4.6 (3.8-10.6) k/uL RBC 4.21 (3.80-5.40) m/uL Hgb 13.4 (11.4-16.0) gm/dL Hct 38.4 (34.0-46.0) % MCV 91.1 (80.0-100.0) fL MCH 31.8 (25.0-35.0) pg MCHC 34.9 (31.0-37.0) g/dL RDW 12.8 (11.5-15.5) % Plt Count 222 (150-450) k/uL MPV 6.8 Neutrophils % 65 % Lymphocytes % 25 % Monocytes % 8 % Eosinophils % 0 % Basophils % 0 % Neutrophils # 3.0 (1.3-7.7) k/uL Lymphocytes # 1.1 (1.0-4.8) k/uL Monocytes # 0.4 (0-1.0) k/uL Eosinophils # 0.0 (0-0.7) k/uL Basophils # 0.0 (0-0.2) k/uL PT 11.1 (10.0-12.5) sec INR 1.0 (<1.2) APTT 22.4 (22.0-30.0) sec Sodium (137-145) mmol/L Potassium (3.5-5.1) mmol/L Chloride (98-107) mmol/L Carbon Dioxide (22-30) mmol/L Anion Gap mmol/L BUN (7-17) mg/dL Creatinine (0.52-1.04) mg/dL Est GFR (CKD-EPI)AfAm (>60 ml/min/1.73 sqM) Est GFR (CKD-EPI)NonAf (>60 ml/min/1.73 sqM) Glucose (74-99) mg/dL Calcium (8.4-10.2) mg/dL Total Bilirubin (0.2-1.3) mg/dL AST (14-36) U/L ALT (4-34) U/L Alkaline Phosphatase (38-126) U/L Total Protein (6.3-8.2) g/dL Albumin (3.5-5.0) g/dL Amylase (30-110) U/L Lipase (23-300) U/L Urine Color Colorless Urine Appearance Clear (Clear) Urine pH 7.0 (5.0-8.0) Ur Specific [place] 1.037 H (1.001-1.035) Urine Protein Negative (Negative) Urine Glucose (UA) Negative (Negative) Urine Ketones Negative (Negative) Urine Blood Negative (Negative) Urine Nitrite Negative (Negative) Urine Bilirubin Negative (Negative) Urine Urobilinogen <2.0 (<2.0) mg/dL Ur Leukocyte Esterase Negative (Negative) 05/18/24 Range/Units 10:22 WBC (3.8-10.6) k/uL RBC (3.80-5.40) m/uL Hgb (11.4-16.0) gm/dL Hct (34.0-46.0) % MCV (80.0-100.0) fL MCH (25.0-35.0) pg MCHC (31.0-37.0) g/dL RDW (11.5-15.5) % Plt Count (150-450) k/uL MPV Neutrophils % % Lymphocytes % % Monocytes % % Eosinophils % % Basophils % % Neutrophils # (1.3-7.7) k/uL Lymphocytes # (1.0-4.8) k/uL Monocytes # (0-1.0) k/uL Eosinophils # (0-0.7) k/uL Basophils # (0-0.2) k/uL PT (10.0-12.5) sec INR (<1.2) APTT (22.0-30.0) sec Sodium 137 (137-145) mmol/L Potassium 3.9 (3.5-5.1) mmol/L Chloride 101 (98-107) mmol/L Carbon Dioxide 32 H (22-30) mmol/L Anion Gap 4 mmol/L BUN 18 H (7-17) mg/dL Creatinine 0.60 (0.52-1.04) mg/dL Est GFR (CKD-EPI)AfAm >90 (>60 ml/min/1.73 sqM) Est GFR (CKD-EPI)NonAf 85 (>60 ml/min/1.73 sqM) Glucose 120 H (74-99) mg/dL Calcium 10.3 H (8.4-10.2) mg/dL Total Bilirubin 0.6 (0.2-1.3) mg/dL AST 23 (14-36) U/L ALT 20 (4-34) U/L Alkaline Phosphatase 65 (38-126) U/L Total Protein 7.1 (6.3-8.2) g/dL Albumin 4.5 (3.5-5.0) g/dL Amylase 63 (30-110) U/L Lipase 119 (23-300) U/L Urine Color Urine Appearance (Clear) Urine pH (5.0-8.0) Ur Specific [place] (1.001-1.035) Urine Protein (Negative) Urine Glucose (UA) (Negative) Urine Ketones (Negative) Urine Blood (Negative) Urine Nitrite (Negative) Urine Bilirubin (Negative) Urine Urobilinogen (<2.0) mg/dL Ur Leukocyte Esterase (Negative) Disposition Clinical Impression: Abdominal pain Disposition: HOME SELF-CARE Condition: Stable Instructions (If sedation given, give patient instructions): Abdominal Pain (ED) Additional Instructions: Please do follow-up with primary care physician beginning of the week. Return for increased pain, fever, vomiting, worsening or changing symptoms or any other concerns. Is patient prescribed a controlled substance at d/c from ED?: No Referrals: Bhanu Vicente MD [Primary Care Provider] - 1-2 days Time of Disposition: 13:33
[2024-05-18 10:28] LABS: Basophils % (A) 0 %; Eosinophils % (A) 0 %; HCT 38.4 % (34.0-46.0); HGB 13.4 gm/dL (11.4-16.0); Lymphocytes # (A) 1.1 k/uL (1.0-4.8); Lymphocytes % (A) 25 %; MCH 31.8 pg (25.0-35.0); MCHC 34.9 g/dL (31.0-37.0); MCV 91.1 fL (80.0-100.0); Mean Platelet Volume 6.8; Monocytes # (A) 0.4 k/uL (0-1.0); Monocytes % (A) 8 %; Neutrophils % (A) 65 %; Platelet Count 222 k/uL (150-450); RBC 4.21 m/uL (3.80-5.40); RDW 12.8 % (11.5-15.5); WBC 4.6 k/uL (3.8-10.6)
[2024-05-18] MEDS: SODIUM CHLORIDE 0.9% 1,000 ML IV STA (10:30)
[2024-05-18] MEDS: ONDANSETRON 4 MG/2 ML VIAL IVP STA (10:31)
[2024-05-18] MEDS: FAMOTIDINE 20 MG/2 ML VIAL IV STA (10:31)
[2024-05-18 10:39] LABS: ALT 20 U/L (4-34); AST 23 U/L (14-36); African American GFR (CKD) >90 (>60 ml/min/1.73 sqM); Albumin 4.5 g/dL (3.5-5.0); Alkaline Phosphatase 65 U/L (38-126); Amylase 63 U/L (30-110); Anion Gap 4 mmol/L; Blood Urea Nitrogen 18 mg/dL (7-17); Calcium 10.3 mg/dL (8.4-10.2); Carbon Dioxide 32 mmol/L (22-30); Chloride 101 mmol/L (98-107); Glucose 120 mg/dL (74-99); Lipase 119 U/L (23-300); Non-African American GFR(CKD) 85 (>60 ml/min/1.73 sqM); Partial Thromboplastin Time 22.4 sec (22.0-30.0); Potassium 3.9 mmol/L (3.5-5.1); Prothrombin Time 11.1 sec (10.0-12.5); Sodium 137 mmol/L (137-145); Total Bilirubin 0.6 mg/dL (0.2-1.3); Total Protein 7.1 g/dL (6.3-8.2)
[2024-05-18] MEDS: SODIUM CHLORIDE 0.9% 500 ML 500 ML IV STA (11:24)
--- NOTE | 2024-05-18 11:27 | CT ---
EXAMINATION TYPE: CT abdomen pelvis w con DATE OF EXAM: 05/18/2024 COMPARISON: 08/02/2019 HISTORY: right flank pain and right inguinal pain CT DLP: 725.8 mGycm Automated exposure control for dose reduction was used. TECHNIQUE: Helical acquisition of images was performed from the lung bases through the pelvis. CONTRAST: Performed without Oral Contrast and with IV Contrast, patient injected with 100 mL of Isovue 300. FINDINGS: There is minimal interstitial scarring in the left lung base. The gallbladder is normal without distention, wall thickening, pericholecystic fluid or gallstones. T here is no biliary ductal dilatation. There are multiple stable small hepatic cysts. There is no solid renal mass or hydronephrosis and there is homogeneous contrast enhancement of the r enal parenchyma. The caliber the abdominal aorta is normal is no retroperitoneal adenopathy or hemorr nancy. The bowel loops are normal in caliber and there is no evidence of dilatation or obstruction. No infla mmatory changes are identified in the bowel wall or mesentery. There is no free intraperitoneal air or fluid. No pelvic mass, free fluid, abscess or adenopathy. There is a stable right hip prosthesis IMPRESSION: No acute changes within the abdomen or pelvis
[2024-05-18 13:04] LABS: Appearance,Urine Clear (Clear); Bilirubin,Urine Negative (Negative); Blood,Urine Negative (Negative); Color,Urine Colorless; Glucose,Urine (UA) Negative (Negative); Ketones,Urine Negative (Negative); Leukocyte Esterase,Urine Negative (Negative); Nitrite,Urine Negative (Negative); Protein,Urine Negative (Negative); Specific Gravity,Urine 1.037 (1.001-1.035); Urobilinogen,Urine <2.0 mg/dL (<2.0)
[2024-05-18 15:10] VITALS: BP 149/92; PULSE 67; RESP 14; TEMP 97.9
== END 2024-05-18 15:11 | disposition home or self-care (01) ==
LOC: EC 09:37
DX: R10.31 Right lower quadrant pain (principal); Z88.5 Allergy status to narcotic agent
CPT/HCPCS: 36415; 93005; 80053; 82150; 83690; 85025; 85610; 85730; 81003; 74177; 99284; 96374; 96361 ×5; J3490; Q9967

== ENCOUNTER → 2025-05-12 | Outpatient (CLI) | payer MEDICARE, BC ==
--- NOTE | 2025-05-12 13:32 | XR ---
EXAMINATION TYPE: XR lumbar spine 3V DATE OF EXAM: 05/12/2025 12:52 PM COMPARISON: 08/13/2020 CLINICAL INDICATION: Female, 84 years old with history of FALL, INJURY, LOW BACK PAIN, PELVIC PAIN; P HH, pain TECHNIQUE: 3 views FINDINGS: Osteopenia. 5 lumbar type vertebral bodies. Moderate to advanced hypertrophic facet arthropathy espec ially mid to lower lumbar spine. Prominent grade 1 anterolisthesis L4-L5. Remaining alignment is main tained. Vertebral body heights are preserved. Moderate degenerative disc disease L4-L5 and mild elsew here throughout the lumbar spine. IMPRESSION: 1. Moderate to advanced hypertrophic facet arthropathy with a prominent degenerative grade 1 anteroli sthesis at L4-L5 which has worsened from 2020. 2. Moderate degenerative disc disease L4-L5 and mild elsewhere within the lumbar spine. 3. No vertebral compression collapse. [facility], Workstation: [facility], 05/12/2025 1:29 PM
--- NOTE | 2025-05-12 13:33 | XR ---
EXAMINATION TYPE: XR Hip 2 views Bilateral and AP pelvis DATE OF EXAM: 05/12/2025 12:52 PM COMPARISON: 09/08/2021 CLINICAL INDICATION: Female, 84 years old with history of FALL, INJURY, LOW BACK PAIN, PELVIC PAIN; P HH, pain FINDINGS: Mild marginal spurring at the left hip. Compared to 2020, there has been placement of a right hip hem iarthroplasty. Mild degenerative change at the pubic symphysis. SI joints appear symmetric and intact . No periprosthetic fracture seen on the right. No acute fracture seen on the left. Limited by osteop enia. IMPRESSION: 1. Uncomplicated right hip hemiarthroplasty. 2. Mild left hip OA. 3. Osteopenia limiting assessment. No displaced fracture is seen. [facility], , 05/12/2025 1:31 PM
== END | disposition home or self-care (01) ==
LOC: RADXRMAIN 12:19
PROVIDERS: ATTEND Internal Medicine
DX: M47.816 Spondylosis without myelopathy or radiculopathy, lumbar region (principal); M43.16 Spondylolisthesis, lumbar region; M51.360 Other intervertebral disc degeneration, lumbar region with discogenic back pain only; M85.88 Other specified disorders of bone density and structure, other site; M16.12 Unilateral primary osteoarthritis, left hip; Z96.641 Presence of right artificial hip joint
CPT/HCPCS: 72100; 73521